=== PATIENT | female | born 1960 | race Caucasian/White ===

== ENCOUNTER 2023-07-04 13:42 | Emergency (ER) | payer OTHER, SELFPAY ==
[2023-07-04] VITALS (7 sets, daily range): BP systolic 145–166; BP diastolic 81–84; PULSE 79–100; RESP 18–20; TEMP 36.7; O2SAT 96–97; BMI 23.8
--- NOTE | 2023-07-04 14:11 | ED_ITS ---
HPI - General Adult General Time Seen by Provider: 14:12 Date Seen: 07/04/23 Chief complaint: Hypertension Stated complaint: high blood pressure, chest pain Time Seen by Provider: 07/04/23 13:59 Source: patient, family, RN notes reviewed and old records reviewed Mode of arrival: ambulatory Limitations: no limitations History of Present Illness HPI narrative: 62-year-old female the who presents today with high blood pressure and chest pain. Patient ran out of losartan about a week ago, restarted but did forget to take it yesterday. She has a appointment with medical management this week and decided to check her blood pressure this morning, initial was 170s/100s this morning, went up this afternoon. She also has had some twinges of chest pain. This is migratory, she has had about 3 or 4 episodes total today, last for a 2nd or 2. No associated nausea vomiting. No chest pain between episodes and no shortness of breath. Related Data Home Medications ?Medication ?Instructions ?Recorded ?Confirmed atorvastatin 20 mg tablet 20 mg PO DAILY 07/04/23 07/04/23 bupropion HCl 300 mg 24 hr tablet, 300 mg PO DAILY 07/04/23 07/04/23 extended release cyanocobalamin (vitamin B-12) 1,000 mcg IM 07/04/23 1,000 mcg/mL injection solution losartan 50 mg tablet 50 mg PO DAILY 07/04/23 07/04/23 metformin 500 mg tablet,extended 1,000 mg PO BID 07/04/23 07/04/23 release 24 hr semaglutide 2 mg/dose (8 mg/3 mL) mg subcut 07/04/23 subcutaneous pen injector (Ozempic) sertraline 100 mg tablet 150 mg PO 07/04/23 trazodone 100 mg tablet 100 mg PO QPM 07/04/23 07/04/23 Allergies Allergy/AdvReac Type Severity Reaction Status Date / Time morphine Allergy Unknown Verified 07/04/23 13:55 Penicillins Allergy Unknown Verified 07/04/23 13:55 Exam Narrative: Exam Narrative: General: Well-developed and well-nourished, no acute distress Head: Atraumatic and normocephalic Eyes: Pupils are equal reactive, extraocular motions intact, conjunctiva clear ENT: External nose and ears are normal, posterior pharynx without erythema or exudate Neck: No midline cervical tenderness, full spontaneous range of motion the neck, trachea midline, no adenopathy Heart: Regular rate and rhythm no murmurs or thrills Lungs: Clear to auscultation bilaterally without wheezes or crackles Abdomen: Soft, nontender, nondistended with active bowel sounds Musculoskeletal: No tenderness, deformity, or edema Neurologic: Awake, alert, and oriented x3, no gross focal neurologic deficits, cranial nerves intact as tested Psych: Mood and affect are appropriate Skin: No rashes Const: Vital Signs, click to edit/add: Vital Signs - 24 hr 07/04/23 13:48 Temperature 98.0 F Pulse Rate [Pulse Oximeter] 100 Respiratory Rate 20 Blood Pressure [Ri ght Upper Arm] 166/81 H Pulse Oximetry 97 Oxygen Delivery Me thod Room Air Course Course ED Course: Patient seen examined, presents today with elevated blood pressure chest pain. Blood pressure here is 166/81, patient appears very anxious, tremulous in, and a little bit disorganized in her history. Discussed labs, EKG although pain is not typical for angina. Reevaluation(s) Time of Reevaluation #1: 15:00 Reevaluation #1: Labs ordered and independently interpreted by me with negative troponin, normal basic metabolic panel. Patient is stable for discharge with outpatient follow- up as scheduled. No changes to antihypertensives for now. Vital Signs Vital signs: Initial Vital Signs Temperature 98.0 F 07/04/23 13:48 Temperature Source Temporal Artery Scan 07/04/23 13:48 Pulse Rate 100 07/04/23 13:48 Respiratory Rate 20 07/04/23 13:48 Blood Pressure 166/81 H 07/04/23 13:48 Blood Pressure Mean 109 H 07/04/23 13:48 Blood Pressure Position Sitting 07/04/23 13:48 Pulse Oximetry 97 07/04/23 13:48 Oxygen Delivery Method Room Air 07/04/23 13:48 Vital Signs Temperature 98.0 F 07/04/23 13:48 Pulse Rate 100 07/04/23 13:48 Respiratory Rate 20 07/04/23 13:48 Blood Pressure 166/81 H 07/04/23 13:48 Pulse Oximetry 97 07/04/23 13:48 Oxygen Delivery Method Room Air 07/04/23 13:48 Temperature 98.0 F 07/04/23 13:48 Pulse Rate 100 07/04/23 13:48 Respiratory Rate 20 07/04/23 13:48 Blood Pressure 166/81 H 07/04/23 13:48 Pulse Oximetry 97 07/04/23 13:48 Oxygen Delivery Method Room Air 07/04/23 13:48 Medical Decision Making Lab Data Labs: Lab Results 07/04/23 Range/Units 14:25 Sodium 139 (135-149) mmol/L Potassium 4.1 (3.6-5.1) mmol/L Chloride 109 (96-114) mmol/L Carbon Dioxide 26 (20-32) mmol/L Anion Gap 4 L (7-15) mEq/L BUN 10 (7-30) mg/dL Creatinine 0.6 (0.5-1.5) mg/dL Estimated Creat Clear 107.82 Estimated GFR 103 ml/min Glucose 149 H (60-115) mg/dL Calcium 9.0 (8.4-10.6) mg/dL Magnesium 1.6 (1.5-2.6) mg/dL POC Troponin I 0.00 L (0.01-0.04) ng/ml ECG Data Attestation: I personally reviewed and interpreted this ECG as follows: Prior ECG tracings: not available for review Interpretation: Performed at 2:23 p.m. demonstrates sinus rhythm rate 85, no acute ST elevations or depressions, normal intervals, normal axis, QTC 473, MO 130. No prior for comparison Discharge Plan Discharge Clinical Impression: Atypical chest pain, Hypertension Patient Disposition: Home, Self-Care Condition: Stable Instructions: Hypertension (ED), Noncardiac Chest Pain (ED) Activity Level: Activity as Tolerated Discharge Diet: Regular Prescriptions: No Action atorvastatin 20 mg tablet 20 mg PO DAILY sertraline 100 mg tablet 150 mg PO trazodone 100 mg tablet 100 mg PO QPM cyanocobalamin (vitamin B-12) 1,000 mcg/mL solution 1,000 mcg IM bupropion HCl 300 mg tablet extended release 24 hr 300 mg PO DAILY losartan 50 mg tablet 50 mg PO DAILY metformin 500 mg tablet extended release 24 hr 1,000 mg PO BID Ozempic 2 mg/dose (8 mg/3 mL) pen injector subcut Stand Alone Forms: MyHealth Info Instructions
[2023-07-04 14:46] LABS: Chloride* 109 mmol/L (96-114); Sodium* 139 mmol/L (135-149)
[2023-07-04 14:47] LABS: Potassium* 4.1 mmol/L (3.6-5.1)
[2023-07-04 14:49] LABS: Anion Gap 4 mEq/L (7-15); Carbon Dioxide* 26 mmol/L (20-32); Creatinine* 0.6 mg/dL (0.5-1.5); Est. Creatinine Clearance* 107.82; Estimated Glomerular Filt Rate 103 ml/min
[2023-07-04 14:50] LABS: Blood Urea Nitrogen* 10 mg/dL (7-30); Glucose* 149 mg/dL (60-115); Magnesium* 1.6 mg/dL (1.5-2.6)
== END 2023-07-04 15:13 | disposition home or self-care (01) ==
PROVIDERS: Emergency Provider Family Medicine
DX: R07.9 Chest pain, unspecified (principal); I10 Essential (primary) hypertension
CPT/HCPCS: 36415; 80048; 83735; 84484; 93005; 99284

== ENCOUNTER 2024-02-18 16:47 | Emergency (ER) | payer OTHER, SELFPAY ==
--- OUTSIDE RECORDS SUMMARY | 2024-02-18 16:49 | XMS_ITS | Referral Summary ---
Author Organization [facility] Address [address] [place] [id number] Care Team Providers Care Toy Assembly Supervisor Name Role Phone [facility], [facility] Primary Care Provider Allergies Active Allergy Reactions Criticality Noted Date Comments Morphine 07/18/2018 Penicillin G 04/08/2017 Medications LISINOPRIL PO Active ATORVASTATIN CALCIUM PO Active sertraline (ZOLOFT) 100 MG tablet Take 100 mg by mouth daily Active metFORMIN (GLUCOPHAGE) 500 MG tablet Take 1,000 mg by mouth 2 times daily (with meals) Active insulin glargine (LANTUS VIAL) 100 UNIT/ML vial Inject Subcutaneous At Bedtime Active liraglutide (VICTOZA) 18 MG/3ML solution Inject Subcutaneous daily Active oxyCODONE (ROXICODONE) 5 MG tablet Take 1-2 tablets (5-10 mg) by mouth every 6 hours as needed for pain 20 tablet 9 Active Active Problems No known active problems Social History Tobacco Use Types Packs/Day Years Used Date Smoking Tobacco: Never Alcohol Use Standard Drinks/Week Comments Yes 0 (1 standard drink = 0.6 oz pur e alcohol) rare Adolescent Education Answer Date Record ed Getting School Help Needed Not on file 10/31 Comments No Sex and Gender Information Value Date Recorded Sex Assigned at Not on file Legal Sex Female 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 Gender Identity Not on file Sexual Orientation Not on file Last Filed Vital Signs Vital Sign Reading Time Taken Comments Blood Pressure 139/86 06/19/2022 9:31 AM CDT Pulse 82 06/19/2022 9:31 AM CDT Temperature 36.1 C (97 F) 06/19/2022 9:31 AM CDT Respiratory Rate 16 06/06/2020 3:35 PM CDT Oxygen Saturation 96% 06/19/2022 9:31 AM CDT Inhaled Oxygen Concentration - - Weight 92.1 kg (203 lb 0.7 oz) 06/06/2020 12:18 PM CDT Height - - Body Mass Index - - Plan of Treatment Not on file Procedures Procedure Name Priority Date/Time Associated Diagnosis Comments BASIC METABOLIC PANEL STAT 06/06/2020 12:26 PM CDT from Last 3 Months or Most Recently Relevant to Health Maintenance Results * (ABNORMAL) Basic metabolic panel (06/06/2020 12:26 PM CDT) Sodium 130(L) 133 - 144 mmol/L 06/06/2020 1:00 PM [facility] Potassium 4.5 3.4 - 5.3 mmol/L 06/06/2020 1:00 PM [facility] Chloride 100 94 - 109 mmol/L 06/06/2020 1:00 PM [facility] Carbon Dioxide 12(L) 20 - 32 mmol/L 06/06/2020 1:09 PM [facility] Anion Gap 18(H) 3 - 14 mmol/L 06/06/2020 1:09 PM [facility] Glucose 389(H) 70 - 99 mg/dL 06/06/2020 1:09 PM [facility] Urea Nitrogen 21 7 - 30 mg/dL 06/06/2020 1:09 PM [facility] Creatinine 0.69 0.52 - 1.04 mg/dL 06/06/2020 1:09 PM [facility] GFR Estimate >90 >60 mL/min/{1. 73_m2} 06/06/2020 1:09 PM [facility] Comment: Non GFR Calc Starting 01/24/2018, serum creatinine based estimated GFR (eGFR) will be calculated using the Chronic Kidney Disease Epidemiology Collaboration (CKD-EPI) equation. GFR Estimate If Black >90 >60 mL/min/{1. 73_m2} 06/06/2020 1:09 PM [facility] Comment: GFR Calc Starting 01/24/2018, serum creatinine based estimated GFR (eGFR) will be calculated using the Chronic Kidney Disease Epidemiology Collaboration (CKD-EPI) equation. Calcium 9.3 8.5 - 10.1 mg/dL 06/06/2020 1:09 PM CDT [facility] Blood 06/06/2020 12:2 6 PM CDT 06/06/2020 12:47 PM CDT us Rasheeda Najera MD LAB - BLOOD ORDERABLES Fi nal Result [facility] [address] [place], [place] [address] [phone] from Last 3 Months or Most Recently Relevant to Health Maintenance Insurance [facility] Care Teams Toy Assembly Supervisor Relationship Specialty Start Date End Date Clinic, [facility] [address] [place] [address] PCP - General 04/08/17
--- OUTSIDE RECORDS SUMMARY | 2024-02-18 16:49 | XMS_ITS | Clinical Summary ---
Author Organization [facility] Address [place], [place] [address] Care Team Providers Care Needle Molder Name Role Phone [facility] Primary Care Provider [phone] Allergies Active Allergy Reactions Criticality Noted Date Comments Morphine Itching 07/18/2018 Penicillins Hives,Shortness Of Breath 9 Medications BLOOD GLUCOSE TEST STRIPSIndication s:Type II or unspecified type diabetes mellitus without mention of complication, not stated as uncontrolled bid for dm 100 3 07/16/19 09 Active LANCETSIndicatio ns:Type II or unspecified type diabetes mellitus without mention of complication, not stated as uncontrolled bid for dm 100 3 07/16/19 09 Active Insulin Platinum, Disposable, (OREN PEN NEEDLE) 32 x 5/32 Indications:Typ e II or unspecified type diabetes mellitus without mention of complication, not stated as uncontrolled As directed. For administering insulin at home. 1 box 0 11/08/19 12 Active insulin glargine (LANTUS SOLOSTAR) 100 unit/mL (3 mL) InPn penIndications:T ype II or unspecified type diabetes mellitus without mention of complication, not stated as uncontrolled Inject 26 Units subcutaneous before bedtime. 1 box 2 10/19/19 13 Active lisinopril (PRINIVIL; ZESTRIL) 10 mg tabletIndication s:Proteinuria Take 1 tablet by mouth once daily. 90 tablet 1 12/05/19 13 Active insulin needles, disposable, (SURE-FINE PEN NEEDLES) 31 X 06/22 Indications:Typ e II or unspecified type diabetes mellitus without mention of complication, not stated as uncontrolled Diagnosis diabetes mellitus, twice daily 60 Each 2 12/05/19 13 Active metFORMIN (GLUCOPHAGE) 1,000 mg tabletIndication s:Type II or unspecified type diabetes mellitus without mention of complication, not stated as uncontrolled Take 1 tablet by mouth 2 times daily with meals. 180 tablet 0 01/12/20 13 Active traZODone (DESYREL) 100 mg tabletIndication s:Vitamin D deficiency Half to 1 tablet oral at bedtime as needed sleep 90 tablet 1 02/20/19 14 Active ergocalciferol (VITAMIN D) 50,000 unit capsuleIndicatio ns:Vitamin D deficiency Take 1 capsule by mouth every Tuesday and . Twice a week , Tuesday and 24 capsule 1 02/22/19 14 Active atorvastatin (LIPITOR) 20 mg tabletIndication s:Hyperlipemia Take 1 tablet by mouth once daily. 90 tablet 3 07/17/19 14 Active semaglutide (Ozempic) 1 mg/dose (4 mg/3 mL) Inject 1 mg subcutaneous once weekly. 08/04/19 22 Active insulin lispro, U-100, (HUMALOG KWIKPEN; ADMELOG SOLOSTAR) 100 unit/mL inpn pen Inject 8 units with breakfast Plus ss 2 per 50 mg/dl >150 as needed. Up to 20 units daily. 01/19/20 22 Active cyanocobalamin (VITAMIN B12) 1,000 mcg/mL injection inject 1ml (1,000 mcg) intramuscularly every 30 days 09/09/19 22 Active buPROPion (WELLBUTRIN XL) 300 mg Extended-Release tablet Take 300 mg by mouth. 10/21/19 22 Active Active Problems Problem Noted Date Diagnosed Date Proteinuria 10/18/2012 Vitamin D deficiency 08/02/2011 Hyperlipemia 08/02/2011 TIA (transient ischemic attack) 07/20/2010 Advance care planning 07/20/2010 Premenopausal menorrhagia 05/29/2009 Sterilization 05/29/2009 Abdominal hernia 03/17/2009 Adjustment disorder with depressed mood 07/16/19 09 SPRAIN, KNEE 05/30/2003 DIABETES TYPE II WITHOUT COMPLICATIONS OR UNSPEC IFIED 07/18/2002 Overview (05/10/2011): Next eye exam 05/20 Gastric bypass status for obesity Immunizations Name Administration Dates Next Due Influenza A (H1N1), Inactiva sukhdev (Age >=3 Years) 01/29/2009 Influenza, IIV3 (Age 6-35 mos) 10/18/2012 Influenza, IIV3 (Age >=3 years) 11/08/19 12,12/10/2010,10/17/2009,2008 Influenza, IIV4 01/05/2022, 0,11/14/2018,2017 Pneumococcal Poly,23-Valent (Pneumovax) 04/13/2007 Td (Age >=7 Years) 01/15/2015,06/06/1997 Td, Preservative Free (age > = 7 Years) 01/15/2015 Tdap 12/10/2010,07/17/2007 Zoster (Shingrix-RZV, recombinant) 07/21/2018, Family History Medical History Relation Name Comments Cancer-breast Mother Genetic Other mom - brCA, CAD , HTN, DM2, depression~maternal aunt, MGF CD Relation Name Status Comments Father Alive Mother Diagnosed in he r 50's Other Social History Tobacco Use Types Packs/Day Years Used Date Smoking Tobacco: Never Smokeless Tobacco: Never Alcohol Use Standard Drinks/Week Comments Yes 0 (1 standard drink = 0.6 oz pur e alcohol) couple times a month Social Connections Answer Date Recorded Frequency of Communication with Friends and Fami ly 0 02/09/2022 Financial Resource Strain Answer Date R ecorded Difficulty of Paying Living Expenses 3 02/09/2022 Difficulty of Paying Living Expenses Not on file 02/09/2022 Food Insecurity Answer Date Recorded Worried About Running Out of Food in the Last Ye ar 1 02/09/2022 Transportation Needs Answer Date Record ed Lack of Transportation (Medical) 1 02/09/2022 Housing Stability Answer Date Recorded Unable to Pay for Housing in the Last Year 1 02/09/2022 Comments No Sex and Gender Information Value Date Recorded Sex Assigned at Not on file Legal Sex Female 5:31 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 Gender Identity Not on file Sexual Orientation Not on file Obstetrics History Last Filed Vital Signs Vital Sign Reading Time Taken Comments Blood Pressure 122/70 02/09/2022 3:44 PM GLOVE CLEANER Pulse 80 02/09/2022 3:44 PM GLOVE CLEANER Temperature 36.3 C (97.4 F) 03/31/2019 8:30 AM GLOVE CLEANER Respiratory Rate 16 03/31/2019 8:30 AM GLOVE CLEANER Oxygen Saturation 96% 02/09/2022 3:44 PM GLOVE CLEANER Inhaled Oxygen Concentration - - Weight 91.4 kg (201 lb 6.4 oz) 02/09/2022 3:44 P M GLOVE CLEANER Height 177.8 cm (5' 10) 02/09/2022 3:44 PM GLOVE CLEANER Body Mass Index 28.9 02/09/2022 3:44 PM GLOVE CLEANER Plan of Treatment Health Maintenance Due Date Last Done Comments Depression screening for age 12+ 1974 Hepatitis C screening for ag e 18-79 1980 Colonoscopy through age 75 10/09/2007 Pneumococcal series for age 50+ (2 of 2 - PCV) 04/12/2008 04/13/2007 Mammogram for age 45-75 08/07/2013 08/08/19 13, 08/06/2011, 12/08/2009, Additional history exists Pap test for age 21-65 07/29/2014 07/30/2011, 2008 Lipids for age 45-75 03/06/2018 03/06/2013, 06/23/2012, 03/13/2012, Additional history exists BMI (ht and wt on same day) for age 18+ 02/09/2023 02/09/2022 COVID-19 vaccine series ( season) 2023 01/05/2022, 02/02/2021, 04/18/2020, Additional history exists Influenza for age 50-64 10/09/2023 01/06/20 22, 12/12/2019, 11/14/2018, Additional history exists Tetanus booster 01/15/2025 01/15/2015, 1210/2014, 12/10/2010, Additional history exists RSV vaccine for adults or (1 - 1-dose 75+ series) 2037 Tdap Completed 12/10/2010, 07/17/2007 HIV for age 15-65 Completed 12/04/2012 Zoster (shingles) series for age 50+ Completed 07/21/2018, 04/20/2017 Medical Devices Implanted Type Area Consumer Insights Intern Device Identifier Shelf Expiration Date Model / Serial / Lot Essure [id number] Implanted:Qty: 1 on 05/29/2009 at [facility] Right: Fallopian Tube [employer] [id number] / / [id number] System Control Permanentpressure - [id number] Implanted:Qty: 1 on 05/29/2009 at [facility] Left: Fallopian Tube [employer] 12/09/2011 [id number] / / [id number] Procedures Procedure Name Priority Date/Time Associated Diagnosis Comments LIPID PANEL W REFLEX MEASURED LDL Routine 03/06/2013 9:14 AM GLOVE CLEANER DIABETES TYPE II WITHOUT COMPLICATIONS OR UNSPECIFIED ANTI HIV 1/2 Routine 12/04/2012 10:38 AM CDT Screening for STD (sexually transmitted disease) XR MAMMO BILAT SCREEN FFDM (IA) Routine 08/07/2012 11:37 AM CDT Other screening mammogram RISK REDUCTION COUNSELOR THIN PREP PAP SCREEN IMAGED Routine 07/30/2011 9:22 AM CDT Screening for malignant neoplasm of the cervix from Last 3 Months or Most Recently Relevant to Health Maintenance Results * LIPID PANEL W REFLEX MEASURED LDL (03/06/2013 9:14 AM GLOVE CLEANER) CHOLESTEROL,TOTA L 137 100 - 199 mg/dL [facility] TRIGLYCERIDES 140 <150 mg/dL [facility] HDL CHOLESTEROL 50 >40 mg/dL [facility] CHOL/HDL RATIO 2.74 <4.50 [facility] NON-HDL CHOLESTEROL 87 Undefined mg/dL [facility] LDL CHOLESTEROL 59 <131 mg/dL [facility] PATIENT STATUS Non-Fast ing [facility] Blood specimen (specimen) BLOOD SPECIMEN / Unknown 03/06/2013 9:14 AM GLOVE CLEANER 03/06/2013 9:04 AM GLOVE CLEANER us Nadia Trujillo MD CHEMISTRY Final Result [facility] [place]IP [id number] [place] [address] * ANTI HIV 1/2 (12/04/2012 10:38 AM CDT) ANTI HIV 1/2 Non-reacti ve [facility] Blood specimen (specimen) BLOOD SPECIMEN / Unknown 12/04/2012 10:38 AM CDT 12/04/2012 10:30 AM CDT us Nadia Trujillo MD SEND OUTS Final Result [facility] INTERNAL ZIP [id number] [address] [place] [address] * XR MAMMO BILAT SCREEN FFDM (08/07/2012 11:37 AM CDT) Anatomical Region Laterality Modality BREASTS, Breast Left, Breast Right Bilateral Mammography Impressions 08/08/2012 8:50 AM CDT There is no radiographic evidence for malignancy. Recommend annual mammograms. A lay language report of this examination will be provided to the patient. MAMMOGRAM ASSESSMENT: ACR 1 Negative Narrative 08/08/2012 8:50 AM CDT XR MAMMO BILAT SCREEN FFDM [G0202.0] CLINICAL HISTORY: This is an asymptomatic 51 y.o. patient. INDICATION FOR EXAM: Mammogram Screening. TECHNIQUE: CC & MLO views were obtained. This digital study was evaluated with the assistance of Computer-Aided Detection. COMPARISON FILM: Yes 08/06/11 [facility] 12/08/09 [facility] FINDINGS: Mammographically, the breast tissue has scattered fibroglandular densities (approximately 25% - 50% glandular). There are no dominant masses, suspicious micro calcifications or areas of architectural distortion. Procedure Note Yolanda Oscar MD - 08/08/2012 XR MAMMO BILAT SCREEN FFDM [G0202.0] CLINICAL HISTORY: This is an asymptomatic 51 y.o. patient. INDICATION FOR EXAM: Mammogram Screening. TECHNIQUE: CC & MLO views were obtained. This digital study was evaluatedwith the assistance of Computer-Aided Detection. COMPARISON FILM: Yes 08/06/11 [facility] 12/08/09 [facility] FINDINGS: Mammographically, the breast tissue has scatteredfibroglandular densities (approximately 25% - 50% glandular). There areno dominant masses, suspicious micro calcifications or areas ofarchitectural distortion. IMPRESSION: There is no radiographic evidence for malignancy. Recommendannual mammograms. A lay language report of this examination will be provided to the patient. MAMMOGRAM ASSESSMENT: ACR 1 Negative us Nadia Trujillo MD MAMMO Final Result * RISK REDUCTION COUNSELOR THIN PREP PAP SCREEN IMAGED (07/30/2011 9:22 AM CDT) CYTOLOGY CYTOPATHOLOGY REPORT [facility] Status: Final Status [id number] CLINICAL INFORMATION Last Date of LMP :Ablation Last Pap Date :07/15/2008 Last Pap Result :NIL ABN [place]/Bx Past 5 YRS :None Hormone Usage :None Menstrual Status :Ablation [place]/Bx done today :No Additional Information :None given HPV Request :HPV if ASCUS SPECIMEN SOURCE :Cervical/vaginal ThinPrep Vial, screening SPECIMEN ADEQUACY :Satisfactory for evaluation No endocervical component seen. INTERPRETATION/RES ULT Negative for intraepithelial lesion or malignancy (NIL) Cytology 1st Screener :yovany Signed by :yovany This specimen was screened by the FDA approved ThinPrep Imaging System and manually reviewed. NOTE: The Pap test is a screening technique, not a diagnostic procedure. It is used primarily to screen for squamous cancers and precursor lesions. Published studies have shown that it is subject to both false negative and false positive results. The pap test should not be used as the sole means to diagnose or exclude pre-malignant and malignant lesions. COLLECTED:07/30/11 ACCESSIONED: 07/30/11 SIGNED: 08/05/11 [facility] PAP [place] CODE NIL [facility] Tissue specimen (specimen) (Cervical/Vagina l) 07/30/2011 9:22 AM CDT 07/30/2011 9:21 AM CDT us Nadia Trujillo MD PATHOLOGY/CYTOLOGY Final Resul t [facility] INTERNAL ZIP [id number] [place] [id number] from Last 3 Months or Most Recently Relevant to Health Maintenance Insurance [facility] Advance Directives * Full Code (Latest Code Status on File) Date Activated Date Inactivated Comments 05/29/2009 11:05 AM 05/29/2009 6:15 PM Care Teams Needle Molder Relationship Specialty [place] [address] [place] [address] PCP - General Physician Spiral Spring Winder 02/09/22
--- OUTSIDE RECORDS SUMMARY | 2024-02-18 16:49 | XMS_ITS | Clinical Summary ---
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 Gender Identity Not on file Sexual Orientation [...] Mass Index - - Plan of Treatment Health Maintenance Due Date Last Done Comments ADVANCE CARE PLANNING 1962 ANNUAL REVIEW OF HM ORDERS 1962 CT COLONOGRAPHY 1962 FIT 1962 FLEX SIG 1962 LIPID 1962 sDNA (Cologuard) 1962 YEARLY PREVENTIVE VISIT 1965 COLONOSCOPY 1972 COLORECTAL CANCER SCREENING 1972 HIV SCREENING 1977 HEPATITIS C SCREENING 1980 PAP 10/09/1983 Pneumococcal Vaccine: 50+ Years (2 of 2 - PCV) 2012 04/13/2007 PHQ-2 (once per calendar year) 2023 GLUCOSE 06/07/2023 06/06/2020, 0303/2017, 04/08/2017 MAMMO SCREENING 09/26/2023 09/25/2021, 05/09, 06/02/2020, Additional history exists COVID-19 Vaccine ( season) 2023 01/05/2022, 02/02/2021, 04/18/2020, Additional history exists INFLUENZA VACCINE (#1) 2023 , 02/02/2021, 12/12/2019, Additional history exists DTAP/TDAP/TD IMMUNIZATION (4 - Td or Tdap) 01/15/2025 01/15/2015, 12/10/2010, 07/17/2007, Additional history exists RSV VACCINE (1 - 1-dose 75+ series) 2037 ZOSTER IMMUNIZATION Completed 07/21/2018, 8 HPV IMMUNIZATION Aged Out No longer e ligible based on patient's age to complete this topic MENINGITIS IMMUNIZATION Aged Out No l onger eligible based on patient's age to complete this topic RSV MONOCLONAL ANTIBODY Aged Out No l onger eligible based on patient's age to complete this topic Procedures Procedure Name Priority Date/Time Associated Diagnosis Comments BASIC METABOLIC PANEL STAT 06/06/2020 12:26 PM CDT from Last 3 Months or Most Recently Relevant to Health Maintenance Results * (ABNORMAL) Basic metabolic panel (06/06/2020 12:26 PM CDT) Sodium 130(L) 133 - 144 mmol/L 06/06/2020 1:00 PM [facility] Potassium 4.5 3.4 - 5.3 mmol/L 06/06/2020 1:00 PM [facility] Chloride 100 94 - 109 mmol/L 06/06/2020 1:00 PM [facility] Carbon Dioxide 12(L) 20 - 32 mmol/L 06/06/2020 1:09 PM [facility] Anion Gap 18(H) 3 - 14 mmol/L 06/06/2020 1:09 PM [facility] Glucose 389(H) 70 - 99 mg/dL 06/06/2020 1:09 PM [facility] Urea Nitrogen 21 7 - 30 mg/dL 06/06/2020 1:09 PM [facility] Creatinine 0.69 0.52 - 1.04 mg/dL 06/06/2020 1:09 PM [facility] GFR Estimate >90 >60 mL/min/{1. 73_m2} 06/06/2020 1:09 PM [facility] Comment: Non GFR Calc Starting 01/24/2018, serum creatinine based estimated GFR (eGFR) will be calculated using the Chronic Kidney Disease Epidemiology Collaboration (CKD-EPI) equation. GFR Estimate If Black >90 >60 mL/min/{1. 73_m2} 06/06/2020 1:09 PM [facility] Comment: GFR Calc Starting 01/24/2018, serum creatinine based estimated GFR (eGFR) will be calculated using the Chronic Kidney Disease Epidemiology Collaboration (CKD-EPI) equation. 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
--- OUTSIDE RECORDS SUMMARY | 2024-02-18 16:50 | XMS_ITS | Encounter Summary ---
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 Social History Tobacco Use Types Packs/Day Years Used Date Smoking Tobacco: Never Smokeless Tobacco: Never Alcohol Use Standard Drinks/Week Comments No 0 (1 standard drink = 0.6 oz pur e alcohol) Sex and Gender Information Value Date Recorded Sex Assigned at Not on file Gender Identity Not on file Sexual Orientation Not on file documented as of this encounter Plan of Treatment Upcoming Encounters Date Type Department Care Team (Late Contact Info) Description 02/23/2024 1:00 PM RESEARCH QUALITY ASSURANCE SPECIALIST Telemedicine [facility] [address] [place] [phone] Lupe Graf PA-C [address] [place] [address] 02/24/2024 2:00 PM RESEARCH QUALITY ASSURANCE SPECIALIST Telemedicine [facility] [address] [place], [place] [phone] Angela Tinajero PharmD [address] [place] [address] documented as of this encounter Visit Diagnoses Not on filedocumented in this encounter Care Teams Care Clinician Relationship Specialty Start Date End Date Lupe Graf PA-C [address] [place] [address] PCP - General 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
--- OUTSIDE RECORDS SUMMARY | 2024-02-18 16:50 | XMS_ITS | Encounter Summary ---
Author Organization [facility] Address [address], [place] [address] Care Team Providers Care [employer] Sales Consultant Name Role Phone Lupe Graf PA-C Primary Care Provider [phone] Encounter Details Date Type Department Care Team (Late st Contact Info) Description 01/03/2024 Procedure Visit [facility] Neuropsychology [address] [address] Krystin Lui PsyD, JAMAAL [address] [place], [place] [id number] Social History Tobacco Use Types Packs/Day Years Used Date Smoking Tobacco: Never Smokeless Tobacco: Never Alcohol Use Standard Drinks/Week Comments Yes 0 (1 standard drink = 0.6 oz pur e alcohol) occasional AUDIT-C Answer Date Recorded Q1: How often do you have a drink containing alc ohol? 2-4 times a month 01/25/2020 Average Number of Drinks Not on file 020 Frequency of Binge Drinking Not on file 01/07 PHQ-2 Answer Date Recorded PHQ-2 Score 2 12/16/2022 Sex and Gender Information Value Date Recorded Sex Assigned at Not on file Gender Identity Not on file Sexual Orientation Not on file documented as of this encounter Procedure Notes * Krystin Lui PsyD, LP - 01/03/2024 8:59 AM CSTAssociated Order(s): NEUROPSYCHOLOGICAL EXAM Procedure(s): NEUROPSYCHOLOGICAL EXAM NEUROPSYCHOLOGICAL EVALUATION DATE(S) OF SERVICE: Testin01/03/2024 NEUROPSYCHOLOGICAL PROFILE: Information presented in the table below is a gross summary of the patient's cognitive performance based upon objective test results, normative data, functional reports, clinical observation, and professional judgment. This table should not be used in isolation. Variability and other important patterns of performance may not be fully reflected here. Refer to the sections below entitled DiagnosticSummary and Detailed Test Results for appropriate context and greater specificity. Within Normal Limits Subtle Mild Moderate Severe Processing Speed X Language X Visuospatial X Learning X Memory: Retrieval X Memory: Recog X Attention X Executive X Global Rating Performance Validity X Mood X DIAGNOSTIC IMPRESSIONS: Essentially normal neuropsychological profile DIAGNOSTIC SUMMARY: Results of this neuropsychological evaluation are essentially normal. Ms. Pace scored within the normal range across tasks of auditory attention/concentration, processing speed, executive functioning, visuoperceptual reasoning, language, and memory. With regard to memory more specifically, scores on verbal memory tasks were average to above average (word list, short stories). Immediate recall of a set of designs was below expectation on the first two learning trials, but above average on the third learning trial. Delayed recall of the set of designs was high average and recognition of them was intact. Mood assessment was suggestive of moderate symptoms of depression and mild symptoms of anxiety. Ms. Pace's test results suggest that the increased difficulty she's noticing with memory and word-finding in her day-to-day affairs most likely reflect normal cognitive efficiencies that people experience. Symptoms of depression and anxiety can also contribute to cognitive inefficiencies. Concerns about memory can also lead to some hypervigilant monitoring of one's cognitive functioning and normal cognitive blips might be misinterpreted as pathological. Ms. Pace could also potentially be noticing some subtle age-related cognitive changes. At this time, Ms. Pace's essentially normal pattern ofperformance across cognitive domains assessed provides no compelling evidence of relative weakness or object impairment which would raise concern about early signs of a neurodegenerative condition. RECOMMENDATIONS: 1. Neurology and Primary Care. Ms. Pace is scheduled for a follow-up appointment with Hailey Glover, ANPR, PIT CLERK, on 01/26/2024 during which time neuropsychological test results will be reviewed and incorporated into diagnostic impressions and recommendations. Results will also be shared with Ms. Pace's primary care provider, Lupe Graf PA-C. 2. Behavioral Health. Ms. Pace had elevated scores on brief mood questionnaires assessing symptomsof depression and anxiety. She was previously referred to Psychiatry to discuss potential changes to her anti-depressant medications, but it does not appear an appointment was scheduled. She can [phone] to schedule an appointment. Ms. Pace indicated she hasn't found therapy particularly helpful in the past, but she's encouraged to keep an open mind and consider finding a therapist with whom she connects. 3. Compensatory Strategies. Ms. Pace should continue to routinely use organizational tools and memory aids, such as to-do lists/written reminders, phone alarms, a calendar, audible reminders (e.g., phone alarms, Reymundo reminders). Having set locations for important items is recommended. When setting an item down, take a moment to be mindful about where you're setting the item - mentally state where you are putting it and what else is in that area. The Smart But Scattered Guide to Success: How to Use Your Brain's Executive Skills to Keep Up, Stay Calm, and Get Organized at Work and at Home by Dr. Swetha Olivares and Dr. Alcon Dueñas has useful advice for people who have difficulties with attention, organization, and memory in their day-to-day affairs. 4. Promoting Overall Health. Ms. Pace is encouraged to remain physically, socially, and cognitivelyactive to promote her overall health and well-being. 5. Neuropsychological Re-Evaluation. Current results can serve as a point of comparison. If there are concerns about a progressive decline in cognitive functioning, a neuropsychological re-evaluationcan be arranged. REFERRING CLINICIAN: Hailey Glover, WEATHERIZATION DIRECTOR, PIT CLERK [address] / [place] [address] REASON FOR CONSULTATION: Neuropsychological evaluation to assess the patient's current cognitive status, rule out an organicbasis for impairment, assist with diagnostic clarification, and offer treatment recommendations. CLINICAL HISTORY: Ms. Shawna Pace is a 63-year-old, right-handed, white female who presented for a neuropsychological evaluation. Per review of records, in 2017 Ms. Pace was seen by Dr. Garcia in Neurology. Per his note, Ms. Pace reported 3 episodes of experiencing cognitive difficulty followed by a headache whileat work during high stress situations. She apparently was supposed to respond promptly to a conversation and seemed to lose her train of thought. She apparently could hear what people were saying buttheir voices seemed to be coming from a distance and muffled. She indicated the left her face felt numb and then had a headache, nausea, unsteadiness, and visual changes characterized by ???a tricklelike a wave of objects moving.?? The headache would last a day or two. Her neurological examination was notable for difficulty with tandem walking. Dr. Garcia's impression was that these episodes were migraine headaches. In May and June 2023 Ms. Pace reported concerns about her memory and hand tremor to her pharmacist, Dr. Vergara. Dr. Vergara recommended Ms. Pace follow-up with her primary care provider, Lupe Graf PA-C. Lupe Graf PA-C, referred Ms. Pace to Neurology and to Occupational Therapy. A referral to Psychiatry was also placed for possible anti-depressant medication changes, though it does not appear an appointment was scheduled. On 07/11/2023 Ms. Pace was seen by YANG Peralta/Emeka. Per her note, Ms. Pace indicated that she had been noticing more forgetfulness, such as forgetting plans she set up with friends. Word-finding difficulties were also reported. Ms. Pace indicated that she has dyslexia which has been associated with some lifelong challenges, such as with difficulty with directions. Ms. Pace obtained a score of27/30 on the MoCA. Memory compensatory strategies were reviewed. On 09/08/2023 Ms. Pace was seen in Neurology by Hailey Glover APRN, PIT CLERK. Per her note, Ms. Pace reported having a hand tremor for about 5 years which had progressively worsened, making it hard to dosome activities she used to enjoy, such as drawing and painting. Changes with memory were reported to have emerged over the past two years, such as forgetting recent events, asking a question repeatedly, and difficulties recalling names. Difficulties expressing thoughts and maintaining attention/focus were also endorsed. Visual misperceptions and balance difficulties were reported. It was noted Ms. Pace's mother had Lewy body dementia. Ms. Pace's neurological examination was notable for an ataxic tandem walk and a resting tremor in the head and bilateral upper extremities. Hailey Glover APRN, PIT CLERK, recommended lab work, an EMG to check for neuropathy, neuroimaging of the brain and cervical spine, and a neuropsychological evaluation. During the current evaluation on 01/03/2024, Ms. Pace reported concerns about increased difficulty with memory. She said she'll think of something she needs to do, such as call someone, but then forget to complete the task. She said she forgets things that were recently discussed, such as making plans with a friend. Ms. Pace thinks she is repeating questions to others. Ms. Pace indicated she is misplacing items more frequently. She said at work there are set procedures and sometimes she will bein the middle of a step and feel lost, needing to retrace what she had already completed. Ms. Pace said there are some events from when her children were younger that she thinks she should remember but does not. Ms. Pace reported word-finding difficulties. She said sometimes she thinks she misunderstood something or will respond to others with a comment that is not quite right. She reported losing her train of thought and feeling like her mind goes blank sometimes. Ms. Pace reported she was diagnosed with dyslexia as a child. She said she had a lot of difficulty learning to read but after learning to read became an avid reader. She indicated she will sometimes miss things when reading and that seems to be happening more. Ms. Pace said she has always had difficulties with spatial navigation and knowing left from right. She also reported math has always been ? ??impossible?? for her. Ms. Pace said her hand tremor can vary, but it interferes with her handwriting. She denied her handwriting has become smaller. She reported some balance difficulties and occasional falls. Ms. Pace denied dream enactment behavior. She had been diagnosed with obstructive sleep apnea (PIPO)in the past. She indicated she lost weight and does not believe she has PIPO anymore. With regard to visual misperceptions, Ms. Pace said when looking at lines or a dot on a surface thelines/dot seem to move downward. She believes she has experienced this most of her life. She deniedexperiencing well-formed visual hallucinations. Ms. Pace is independent in managing instrumental activities of daily living. She reported she has set up a lot of reminders to help her keep track of what she needs to do when. DIAGNOSTIC STUDIES: Results from the patient's brain MRI dated 09/20/2023 showed mild chronic microvascular ischemic change, mild generalized cerebral atrophy, and mild cerebellar atrophy. Per NeuroQuant, the hippocampaloccupancy score was at the 91st normative percentile. Results from the patient's cervical spine MRI dated 09/20/2023 showed mild degenerative changes and stenosis. There was no high-grade cervical spinal canal narrowing. Results from the patient's EMG dated 10/11/2023 were normal. MEDICAL HISTORY: In addition to what is noted above, Ms. Pace has diabetes. She was hospitalized in June 2020 with diabetic ketoacidosis within the context of increased depression and non-adherence with her insulin and glucose monitoring. Ms. Pace has hypertension, hyperlipidemia, a history of anomalous atrioventricular excitation (s/p ablation), and a history of gastric bypass surgery. She has hearing loss and said wearing an Airbud/earbud helps. She has hearing aids but doesn't use them. Ms. Pace said she probably had a few concussions when she was young. She denied a history of seizures. FAMILY MEDICAL HISTORY: Ms. Pace's mother had Lewy body dementia. She said her mother's symptoms probably started in her late 60s and she at the age of 78. There is no other known family history of dementia. CURRENT MEDICATIONS: Ms. Pace has a current medication list which includes the following prescription(s): atorvastatin, bupropion, freestyle fredy 3 sensor, cyanocobalamin, glucosamine-chondroitin, hydrochlorothiazide, irbesartan, metformin xr, metronidazole, womens 50+ multi vitamin/min, polyethylene glycol, ozempic (2 mg/dose), sertraline, trazodone, and vitamin d (ergocalciferol). SOCIAL HISTORY: Ms. Pace was born in [place] and lived there until she was around the age of 4 or 5. She then moved to the [facility] to live with her mother. As noted above, Ms. Pace reported difficulties learning to read and indicated she was diagnosed with dyslexia. She said school was very challenging for her. Ms. Pace graduated high school. She said her mother told her she was not smart enough to go to [employer]. Ms. Pace works at [employer] in the [employer] department. She's worked at [employer] [facility] 10 to 11 years. She previously worked at [employer]. 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 Ms. Pace and her have been 34 years. They have 2 young adult sons. In terms of hobbies/interests, Ms. Pace enj oys spending time with her horse, though indicated she no longer rides her. Ms. Pace listens to audio books and likes doing art work. She has some friends she sees every 2 to 3 weeks and sees a groupof very close friends who live further away every month or two. PSYCHIATRIC HISTORY: Ms. Pace has a history of depression and anxiety. She indicated her mother was narcissistic and cruel. Ms. Mitchell said she has always been down on herself. She has had passive suicidal ideation. She's been in counseling in the past, but said she didn't find it very helpful. Ms. Hoover's anti-depressants are prescribed by her primary care provider. SUBSTANCE USE HISTORY: With regard to alcohol use, Ms. Pace said she used to drink one or two Bloody Yuki's in the eveningseveral days of the week but after being told her alcohol use could cause memory difficulties she cut back. She said now she'll occasionally have a drink if out with a friend. Ms. Pace sometimes eatsa gummy to help her sleep; she wasn't sure if the gummies contain THC or CBD. She denied other recreational drug use. MENTAL-STATUS EXAMINATION AND BEHAVIORAL OBSERVATIONS: Ms. Pace arrived early for the appointment, unaccompanied. She was appropriately dressed and groomed. Upon casual observation, ambulation was unremarkable. A bilateral action and positional hand tremor was noticed. Both hearing and vision appeared adequate for the purposes of testing. During brief mental status testing, Ms. Pace was fully oriented. She could state the name of the current president and several immediate predecessors. She correctly answered what happened to Hiren Yip and 10/18/2000, and was able to cite a couple of current event topics. Ms. Pace was alert throughout the evaluation. Receptive language functions were intact to conversation. She appeared to understand test instructions without difficulty. Expressive speech was normal in volume, rate, and prosody. Thought processes were generally linear and goal-directed. Response latencies were within the normal range. Ms. Pace demonstrated a full range of affect. She noted she wassomewhat anxious during the testing session and tended to bounce her leg. Ms. Pace was friendly, engaged, and cooperative throughout the evaluation. Ms. Pace was quite self-critical of her perceived performance. She appeared to persist on challenging items. Scores on freestanding and embedded measures of performance validity were adequate. The following results are believed to be an accurate reflection of her current level of cognitive functioning. NEUROPSYCHOLOGICAL MEASURES ADMINISTERED: In addition to chart review and clinical interview, the following neuropsychological measures were administered: Animal Naming Ramos Anxiety Inventory Ramos Depression Inventory - Second Edition [place] Naming Test Brief Visuospatial Memory Test - Revised Clock Drawing Test Controlled Oral Word Association Test Rona-Goel Executive Functioning System, Selected subtests Miller Verbal Learning Test- Revised Dimitris-O Complex Figure Copy [place] Making Test, Parts A and B Too Adult Intelligence Scale - Fourth Edition, Selected subtests Too Memory Scale - Fourth Edition, Selected subtests Wide Range Achievement Test -4, Selected subtests [place] Card Sorting Test - 64 Card Version Various freestanding and embedded measures of performance validity Thank you, Hailey Glover APRN, PIT CLERK, for involving me in the care of this patient. Please feel free to contact me if I can be of further assistance. Neurobehavioral status exam: 35 minutes. Test administration and scoring by accounts payable technician: 177 minutes. Test evaluation services, including clinical integration, data interpretation, clinical decision making, treatment planning, and documentation: 165 minutes. Please note: This report was created using speech-recognition software and may contain unintended word-substitutions. Krystin Lui PsyD, ABPP, LP Board Certified in Clinical [place] [address] DETAILED TEST RESULTS: Word reading, often used to estimate baseline functioning/educational attainment, was average. Auditory attention/concentration was average to above average. Processing speed was average on a digit-symbol coding task and on a visual scanning and numeric sequencing task. Rapid color naming was average and rapid word reading was above average. With regard to executive functioning, cognitive flexibility/set-shifting was average on an alpha-numeric sequencing task. Performance on a task of responseinhibition was average. On the subsequent section which added in a set-shifting component performance was above average. Novel problem-solving as assessed by a card-sorting task was intact. Copy of a complex figure was within the normal range. Lines were tremulous. Clock drawing was notable for incorrect placement of the minute hand. Visuoperceptual reasoning on a block design task was in the average range. Confrontation naming was in the slightly lower end of the average range; phonemic cues provided benefit. Both phonemic and semantic fluency were above average. Verbal abstract reasoning was above average. With regard to verbal memory, immediate and delayed recall of short stories were both above average. Recognition of story content was intact. Total recall of a word list across three learning trials was high average. Delayed recall was average and recognition was intact. Immediate recall of a set of designs was below expectation on the first two learning trials, but high average on the third learning trial. Delayed recall was high average. Recognition of the designs was intact. Lastly, on brief self-report mood questionnaires Ms. Pace scored in the moderate range for symptoms of depression and within mild range for symptoms of anxiety. BALL COACH documented in this encounter Plan of Treatment Upcoming Encounters Date Type Department Care Team (Late st Contact Info) Description 02/23/2024 1:00 PM FOOTBALL COACH Telemedicine [facility] [address] [place] [id number] Lupe Graf PA-C [address] [place] [address] 02/24/2024 2:00 PM FOOTBALL COACH Telemedicine [facility] [address] [place] [address] Angela Tinajero PharmD [address] [place] [address] documented as of this encounter Procedures Procedure Name Priority Date/Time Associated Diagnosis Comments NEUROPSYCHOLOGICAL EXAM Routine 01/03/20 8:59 AM FOOTBALL COACH documented in this encounter Results * NEUROPSYCHOLOGICAL EXAM (01/03/2024 8:59 AM FOOTBALL COACH) Narrative EXTERNAL RESULTS - 01/03/2024 8:59 AM FOOTBALL COACH Krystin Lui, Joss, JAMAAL 01/04/2024 11:17 AM NEUROPSYCHOLOGICAL EVALUATION DATE(S) OF SERVICE: Testin01/03/2024 NEUROPSYCHOLOGICAL PROFILE: Information presented in the table below is a gross summary of the patient's cognitive performance based upon objective test results, normative data, functional reports, clinical observation, and professional judgment. This table should not be used in isolation. Variability and other important patterns of performance may not be fully reflected here. Refer to the sections below entitled Diagnostic Summary and Detailed Test Results for appropriate context and greater specificity. Within Normal Limits Subtle Mild Moderate Severe Processing Speed X Language X Visuospatial X Learning X Memory: Retrieval X Memory: Recog X Attention X Executive X Global Rating Performance Validity X Mood X DIAGNOSTIC IMPRESSIONS: Essentially normal neuropsychological profile DIAGNOSTIC SUMMARY: Results of this neuropsychological evaluation are essentially normal. Ms. Pace scored within the normal range across tasks of auditory attention/concentration, processing speed, executive functioning, visuoperceptual reasoning, language, and memory. With regard to memory more specifically, scores on verbal memory tasks were average to above average (word list, short stories). Immediate recall of a set of designs was below expectation on the first two learning trials, but above average on the third learning trial. Delayed recall of the set of designs was high average and recognition of them was intact. Mood assessment was suggestive of moderate symptoms of depression and mild symptoms of anxiety. Ms. Pace's test results suggest that the increased difficulty she's noticing with memory and word-finding in her day-to-day affairs most likely reflect normal cognitive efficiencies that people experience. Symptoms of depression and anxiety can also contribute to cognitive inefficiencies. Concerns about memory can also lead to some hypervigilant monitoring of one's cognitive functioning and normal cognitive blips might be misinterpreted as pathological. Ms. Pace could also potentially be noticing some subtle age-related cognitive changes. At this time, Ms. Pace's essentially normal pattern of performance across cognitive domains assessed provides no compelling evidence of relative weakness or object impairment which would raise concern about early signs of a neurodegenerative condition. RECOMMENDATIONS: 1. Neurology and Primary Care. Ms. Pace is scheduled for a follow-up appointment with Hailey Glover, ANPR, PIT CLERK, on 01/26/2024 during which time neuropsychological test results will be reviewed and incorporated into diagnostic impressions and recommendations. Results will also be shared with Ms. Pace's primary care provider, Lupe Graf PA-C. 2. Behavioral Health. Ms. Pace had elevated scores on brief mood questionnaires assessing symptoms of depression and anxiety. She was previously referred to Psychiatry to discuss potential changes to her anti-depressant medications, but it does not appear an appointment was scheduled. She can call [phone] to schedule an appointment. Ms. Pace indicated she hasn't found therapy particularly helpful in the past, but she's encouraged to keep an open mind and consider finding a therapist with whom she connects. 3. Compensatory Strategies. Ms. Pace should continue to routinely use organizational tools and memory aids, such as to-do lists/written reminders, phone alarms, a calendar, audible reminders (e.g., phone alarms, Reymundo reminders). Having set locations for important items is recommended. When setting an item down, take a moment to be mindful about where you're setting the item - mentally state where you are putting it and what else is in that area. The Smart But Scattered Guide to Success: How to Use Your Brain's Executive Skills to Keep Up, Stay Calm, and Get Organized at Work and at Home by Dr. Swetha Olivares and Dr. Alcon Dueñas has useful advice for people who have difficulties with attention, organization, and memory in their day-to-day affairs. 4. Promoting Overall Health. Ms. Pace is encouraged to remain physically, socially, and cognitively active to promote her overall health and well-being. 5. Neuropsychological Re-Evaluation. Current results can serve as a point of comparison. If there are concerns about a progressive decline in cognitive functioning, a neuropsychological re-evaluation can be arranged. ____ REFERRING CLINICIAN: Hailey Glover, CARA, PIT CLERK [address] [facility] / [place] [address] REASON FOR CONSULTATION: Neuropsychological evaluation to assess the patient's current cognitive status, rule out an organic basis for impairment, assist with diagnostic clarification, and offer treatment recommendations. CLINICAL HISTORY: Ms. Shawna Pace is a 63-year-old, right-handed, white female who presented for a neuropsychological evaluation. Per review of records, in 2017 Ms. Pace was seen by Dr. Garcia in Neurology. Per his note, Ms. Pace reported 3 episodes of experiencing cognitive difficulty followed by a headache while at work during high stress situations. She apparently was supposed to respond promptly to a conversation and seemed to lose her train of thought. She apparently could hear what people were saying but their voices seemed to be coming from a distance and muffled. She indicated the left her face felt numb and then had a headache, nausea, unsteadiness, and visual changes characterized by a trickle like a wave of objects moving. The headache would last a day or two. Her neurological examination was notable for difficulty with tandem walking. Dr. Garcia's impression was that these episodes were migraine headaches. In May and June 2023 Ms. Pace reported concerns about her memory and hand tremor to her pharmacist, Dr. Vergara. Dr. Vergara recommended Ms. Pace follow-up with her primary care provider, Lupe Graf PA-C. Lupe Graf PA-C, referred Ms. Pace to Neurology and to Occupational Therapy. A referral to Psychiatry was also placed for possible anti-depressant medication changes, though it does not appear an appointment was scheduled. On 07/11/2023 Ms. Pace was seen by YANG Peralta/Emeka. Per her note, Ms. Pace indicated that she had been noticing more forgetfulness, such as forgetting plans she set up with friends. Word-finding difficulties were also reported. Ms. Pace indicated that she has dyslexia which has been associated with some lifelong challenges, such as with difficulty with directions. Ms. Pace obtained a score of 27/30 on the MoCA. Memory compensatory strategies were reviewed. On 09/08/2023 Ms. Pace was seen in Neurology by Hailey Glover APRN, PIT CLERK. Per her note, Ms. Pace reported having a hand tremor for about 5 years which had progressively worsened, making it hard to do some activities she used to enjoy, such as drawing and painting. Changes with memory were reported to have emerged over the past two years, such as forgetting recent events, asking a question repeatedly, and difficulties recalling names. Difficulties expressing thoughts and maintaining attention/focus were also endorsed. Visual misperceptions and balance difficulties were reported. It was noted Ms. Pace's mother had Lewy body dementia. Ms. Pace's neurological examination was notable for an ataxic tandem walk and a resting tremor in the head and bilateral upper extremities. Hailey Glover APRN, PIT CLERK, recommended lab work, an EMG to check for neuropathy, neuroimaging of the brain and cervical spine, and a neuropsychological evaluation. During the current evaluation on 01/03/2024, Ms. Pace reported concerns about increased difficulty with memory. She said she'll think of something she needs to do, such as call someone, but then forget to complete the task. She said she forgets things that were recently discussed, such as making plans with a friend. Ms. Pace thinks she is repeating questions to others. Ms. Pace indicated she is misplacing items more frequently. She said at work there are set procedures and sometimes she will be in the middle of a step and feel lost, needing to retrace what she had already completed. Ms. Pace said there are some events from when her children were younger that she thinks she should remember but does not. Ms. Pace reported word-finding difficulties. She said sometimes she thinks she misunderstood something or will respond to others with a comment that is not quite right. She reported losing her train of thought and feeling like her mind goes blank sometimes. Ms. Pace reported she was diagnosed with dyslexia as a child. She said she had a lot of difficulty learning to read but after learning to read became an avid reader. She indicated she will sometimes miss things when reading and that seems to be happening more. Ms. Pace said she has always had difficulties with spatial navigation and knowing left from right. She also reported math has always been i mpossible for her. Ms. Pace said her hand tremor can vary, but it interferes with her handwriting. She denied her handwriting has become smaller. She reported some balance difficulties and occasional falls. Ms. Pace denied dream enactment behavior. She had been diagnosed with obstructive sleep apnea (PIPO) in the past. She indicated she lost weight and does not believe she has PIPO anymore. With regard to visual misperceptions, Ms. Pace said when looking at lines or a dot on a surface the lines/dot seem to move downward. She believes she has experienced this most of her life. She denied experiencing well-formed visual hallucinations. Ms. Pace is independent in managing instrumental activities of daily living. She reported she has set up a lot of reminders to help her keep track of what she needs to do when. DIAGNOSTIC STUDIES: Results from the patient's brain MRI dated 09/20/2023 showed mild chronic microvascular ischemic change, mild generalized cerebral atrophy, and mild cerebellar atrophy. Per NeuroQuant, the hippocampal occupancy score was at the 91st normative percentile. Results from the patient's cervical spine MRI dated 09/20/2023 showed mild degenerative changes and stenosis. There was no high-grade cervical spinal canal narrowing. Results from the patient's EMG dated 10/11/2023 were normal. MEDICAL HISTORY: In addition to what is noted above, Ms. Pace has diabetes. She was hospitalized in June 2020 with diabetic ketoacidosis within the context of increased depression and non-adherence with her insulin and glucose monitoring. Ms. Pace has hypertension, hyperlipidemia, a history of anomalous atrioventricular excitation (s/p ablation), and a history of gastric bypass surgery. She has hearing loss and said wearing an Airbud/earbud helps. She has hearing aids but doesn't use them. Ms. Pace said she probably had a few concussions when she was young. She denied a history of seizures. FAMILY MEDICAL HISTORY: Ms. Pace's mother had Lewy body dementia. She said her mother's symptoms probably started in her late 60s and she at the age of 78. There is no other known family history of dementia. CURRENT MEDICATIONS: Ms. Pace has a current medication list which includes the following prescription(s): atorvastatin, bupropion, freestyle fredy 3 sensor, cyanocobalamin, glucosamine-chondroitin, hydrochlorothiazide, irbesartan, metformin xr, metronidazole, womens 50+ multi vitamin/min, polyethylene glycol, ozempic (2 mg/dose), sertraline, trazodone, and vitamin d (ergocalciferol). SOCIAL HISTORY: Ms. Pace was born in [place] and lived there until she was around the age of 4 or 5. She then moved to the [facility] to live with her mother. As noted above, Ms. Pace reported difficulties learning to read and indicated she was diagnosed with dyslexia. She said school was very challenging for her. Ms. Pace graduated high school. She said her mother told her she was not smart enough to go to college. Ms. Pace works at [employer] in the [place]. She's worked at [employer] for about 10 to 11 years. She previously worked at [employer]. 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 Ms. Pace and her have been 34 years. They have 2 young adult sons. In terms of hobbies/interests, Ms. Pace enjoys spending time with her horse, though indicated she no longer rides her. Ms. Pace listens to audio books and likes doing art work. She has some friends she sees every 2 to 3 weeks and sees a group of very close friends who live further away every month or two. PSYCHIATRIC HISTORY: Ms. Pace has a history of depression and anxiety. She indicated her mother was narcissistic and cruel. Ms. Mitchell said she has always been down on herself. She has had passive suicidal ideation. She's been in counseling in the past, but said she didn't find it very helpful. Ms. Hoover'ulises anti-depressants are prescribed by her primary care provider. SUBSTANCE USE HISTORY: With regard to alcohol use, Ms. Pace said she used to drink one or two Bloody Yuki's in the evening several days of the week but after being told her alcohol use could cause memory difficulties she cut back. She said now she'll occasionally have a drink if out with a friend. Ms. Pace sometimes eats a gummy to help her sleep; she wasn't sure if the gummies contain THC or CBD. She denied other recreational drug use. MENTAL-STATUS EXAMINATION AND BEHAVIORAL OBSERVATIONS: Ms. Pace arrived early for the appointment, unaccompanied. She was appropriately dressed and groomed. Upon casual observation, ambulation was unremarkable. A bilateral action and positional hand tremor was noticed. Both hearing and vision appeared adequate for the purposes of testing. During brief mental status testing, Ms. Pace was fully oriented. She could state the name of the current president and several immediate predecessors. She correctly answered what happened to Hiren Yip and on 10/18/2000, and was able to cite a couple of current event topics. Ms. Pace was alert throughout the evaluation. Receptive language functions were intact to conversation. She appeared to understand test instructions without difficulty. Expressive speech was normal in volume, rate, and prosody. Thought processes were generally linear and goal-directed. Response latencies were within the normal range. Ms. Pace demonstrated a full range of affect. She noted she was somewhat anxious during the testing session and tended to bounce her leg. Ms. Pace was friendly, engaged, and cooperative throughout the evaluation. Ms. Pace was quite self-critical of her perceived performance. She appeared to persist on challenging items. Scores on freestanding and embedded measures of performance validity were adequate. The following results are believed to be an accurate reflection of her current level of cognitive functioning. NEUROPSYCHOLOGICAL MEASURES ADMINISTERED: In addition to chart review and clinical interview, the following neuropsychological measures were administered: Animal Naming Ramos Anxiety Inventory Ramos Depression Inventory - Second Edition [place] Naming Test Brief Visuospatial Memory Test - Revised Clock Drawing Test Controlled Oral Word Association Test Rona-Goel Executive Functioning System, Selected subtests Miller Verbal Learning Test- Revised Dimitris-O Complex Figure Copy [place] Making Test, Parts A and B Too Adult Intelligence Scale - Fourth Edition, Selected subtests Too Memory Scale - Fourth Edition, Selected subtests Wide Range Achievement Test -4, Selected subtests [place] Card Sorting Test - 64 Card Version Various freestanding and embedded measures of performance validity Thank you, Hailey Glover APRN, PIT CLERK, for involving me in the care of this patient. Please feel free to contact me if I can be of further assistance. Neurobehavioral status exam: 35 minutes. Test administration and scoring by accounts payable technician: 177 minutes. Test evaluation services, including clinical integration, data interpretation, clinical decision making, treatment planning, and documentation: 165 minutes. Please note: This report was created using speech-recognition software and may contain unintended word-substitutions. Krystin Lui PsyD, ABPP, LP Board Certified in Clinical [place] [address] DETAILED TEST RESULTS: Word reading, often used to estimate baseline functioning/educational attainment, was average. Auditory attention/concentration was average to above average. Processing speed was average on a digit-symbol coding task and on a visual scanning and numeric sequencing task. Rapid color naming was average and rapid word reading was above average. With regard to executive functioning, cognitive flexibility/set-shifting was average on an alpha-numeric sequencing task. Performance on a task of response inhibition was average. On the subsequent section which added in a set-shifting component performance was above average. Novel problem-solving as assessed by a card-sorting task was intact. Copy of a complex figure was within the normal range. Lines were tremulous. Clock drawing was notable for incorrect placement of the minute hand. Visuoperceptual reasoning on a block design task was in the average range. Confrontation naming was in the slightly lower end of the average range; phonemic cues provided benefit. Both phonemic and semantic fluency were above average. Verbal abstract reasoning was above average. With regard to verbal memory, immediate and delayed recall of short stories were both above average. Recognition of story content was intact. Total recall of a word list across three learning trials was high average. Delayed recall was average and recognition was intact. Immediate recall of a set of designs was below expectation on the first two learning trials, but high average on the third learning trial. Delayed recall was high average. Recognition of the designs was intact. Lastly, on brief self-report mood questionnaires Ms. Pace scored in the moderate range for symptoms of depression and within mild range for symptoms of anxiety. Hailey Glover APRN, CNP HP DUMMY COD ES EXTERNAL RESULTS documented in this encounter Visit Diagnoses Diagnosis Type 2 diabetes mellitus without complication, unspecified whether intermediate frame tender insulin use (HRC)- Primary Essential hypertension (HRC) Unspecified essential hypertension Hyperlipidemia with target LDL less than 100 (HRC) Other and unspecified hyperlipidemia Complaints of memory disturbance Memory loss Depression with anxiety (HRC) Dysthymic disorder documented in this encounter Care Teams [employer] Sales Consultant Relationship Specialty Start Date End Date Lupe Graf PA-C [address] [place] [address] PCP - General Physician Tank Builder Helper 12/05/14 documented as of this encounter
--- OUTSIDE RECORDS SUMMARY | 2024-02-18 16:50 | XMS_ITS | Encounter Summary ---
Author Organization [facility] Address [address] [address] Care Team Providers Care Fence Rider Name Role Phone Lupe Graf PA-C Primary Care Provider [phone] Encounter Details Date Type Department Care Team (Late Contact Info) Description 06/14/2017 Correspondence None Inactive, Provider DME PATIENT INSTRUCTION/PLAN OF CARE Social History Tobacco Use Types Packs/Day Years [...] (Late Contact Info) Description 02/23/2024 1:00 PM [facility] Telemedicine [facility] [address] [place] [phone] Lupe Graf PA-C [address] [place] [address] 02/24/2024 2:00 PM [facility] Telemedicine [facility] [address] [place], [place] [id number] Angela Tinajero PharmD [address] [place] [address] documented as of this encounter Visit Diagnoses Not on filedocumented in this encounter Care Teams Fence Rider Relationship Specialty Start Date End Date Lupe Graf PA-C [address] [place] [address] PCP - General Physician [employer] First 12/05/14 documented as of this encounter
--- OUTSIDE RECORDS SUMMARY | 2024-02-18 16:50 | XMS_ITS | Clinical Summary ---
[facility] Address [address] [place] [address] Care Team Providers Care Bridge Opener Name Role Phone Lupe Graf PA-C Primary Care Provider [phone] Source Comments You are receiving this document as you are listed as the primary care provider,follow-up provider, or the patient has been referred to you for consultation.This is in compliance with the Medicare and[facility] Cent[facility] EHR Incentive Program,which states Providers who transition their patient to another setting of careor provider of care or refers their patient to another provider of care shouldprovide summary care record for each transition of care or referral. [employer] Allergies Active Allergy Reactions Criticality Noted Date Comments Aspirin 08/10/2007 PN: LW Reaction: h/o gastric bypass Morphine 07/18/2018 Penicillins Hives High 07/15/2008 Other reaction(s): Shortness Of Breath Other reaction(s): Shortness Of Breath Medications Medication Sig Dispensed Refills Start Date End Date Status Multiple Vitamins-Minerals (WOMENS 50+ MULTI VITAMIN/MIN) TABS Take 1 Tablet by mouth daily. Active Glucosamine-Chondr oitin (GLUCOSAMINE CHONDR COMPLEX OR) Take 1 Capsule by mouth daily. Active metroNIDAZOLE (METROCREAM) 0.75 % cream Apply topically two times a day. 60 g 11 01/04/2022 Active polyethylene glycol (MIRALAX) 17 g packet Take 17 g by mouth daily as needed for Constipation. Active cyanocobalamin (SWUAQQUL42) 1000 MCG/ML injection INJECT 1 ML (1,000 MCG) INTRAMUSCULARLY EVERY 30 DAYS 10 mL 3 05/17/2023 Active semaglutide (OZEMPIC, 2 MG/DOSE,) 8 MG/3ML SOPN injectionIndicatio ns:Well controlled type 2 diabetes mellitus (HRC) Inject 2 mg subcutaneously once every week. 9 mL 3 06/01/2023 Active irbesartan (AVAPRO) 300 MG tabletIndications: Essential hypertension (HRC) Take 1 Tablet (300 mg) by mouth daily. 90 Tablet 3 08/22/2023 Active hydroCHLOROthiazid e (ORETIC) 12.5 MG tabletIndications: Essential hypertension (HRC) Take 1 Tablet (12.5 mg) by mouth daily. 90 Tablet 3 09/28/2023 Active Continuous Glucose Sensor (FREESTYLE LEYDA 3 SENSOR)Indications :Type 2 diabetes mellitus without complication, with long-term current use of insulin (HRC) USE 1 SENSOR EVERY 14 DAYS 7 Each 3 10/27/2023 Active metFORMIN XR (GLUCOPHAGE XR) 500 MG 24 hour release tablet TAKE 4 TABLETS (2,000 MG) DAILY - GENERIC FOR GLUCOPHAGE XR 360 Tablet 2 11/10/2023 Active atorvastatin (LIPITOR) 20 MG tabletIndications: Controlled type 2 diabetes mellitus without complication, without long-term current use of insulin (HRC) Take 1 Tablet (20 mg) by mouth daily. 90 Tablet 2 11/21/2023 Active buPROPion (WELLBUTRIN XL) 300 MG 24 hour release tabletIndications: Moderate episode of recurrent major depressive disorder (HRC) Take 1 Tablet (300 mg) by mouth daily. 90 Tablet 3 11/21/2023 Active sertraline (ZOLOFT) 100 MG tabletIndications: Major Depressive Disorder Take 1.5 Tablets (150 mg) by mouth daily. Indications: Major Depressive Disorder 135 Tablet 3 11/21/2023 Active traZODone (DESYREL) 100 MG tabletIndications: Moderate episode of recurrent major depressive disorder (HRC),DIMA (generalized anxiety disorder) (HRC) Take 1 Tablet (100 mg) by mouth daily at bedtime. 90 Tablet 3 11/21/2023 Active Vitamin D, Ergocalciferol, 1.25 MG (79673 UT) CAPSIndications:Vi tamin D deficiency (HRC) TAKE 1 CAPSULE WEEKLY 12 Capsule 3 12/10/2023 Active propranolol (INDERAL) 10 MG tablet Take 1 Tablet (10 mg) by mouth two times a day. 60 Tablet 4 01/26/2024 5 Active Active Problems Patient Care Coordination No te Formatting of this note migh t be different from the original. HP DCM Care Management Shawna Pace Case closed due to goals met. Genesis Coates RN 09/18/2021, 1:37 PM HP DCM Care Management Shawna Pace Patient is engaged in disease management for diabetes Genesis Coates RN 08/14/2021, 12:54 PM Problem Noted Date Diagnosed Date Rosacea 01/04/2022 Other specified eating disorder 11/19/2020 Diabetic ketoacidosis withou t coma associated with type 2 diabetes mellitus 06/09/2020 Depression, major, recurrent, moderate PIPO (obstructive sleep apnea) 06/14/2017 Essential hypertension 12/02/2016 S/P gastric bypass 06/03/2014 B12 deficiency anemia 06/03/2014 Diabetes mellitus, type II 05/30/2013 Iron deficiency anemia 05/30/2013 Vitamin D deficiency 05/30/2013 Depression 05/30/2013 Hyperlipidemia with target LDL less than 100 Overview (10/16/2014): ICD 10 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 Encounters Date Type Department Care Team Description 01/26/2024 7:00 AM URBAN DESIGNER Telemedicine Neurology at [facility] [address] [place] [address] Hailey Glover APRN, MARKET RELATIONSHIP MANAGER Tremor (Primary Dx); Anxiety (HRC); Depression, unspecified depression type 01/09/2024 Notes/Orders PN CENTRALIZED OUTREACH [address] [place] [address] Daisha Casillas PA-C Controlled type 2 diabetes mellitus without complication, without long-term current use of insulin (HRC) 01/03/2024 8:15 AM URBAN DESIGNER Office Visit [facility] [address] [facility] [place] [address] Krystin Lui PsyD, LP Cognitive complaints (Primary Dx) 01/03/2024 Procedure Visit [facility] [address] [facility] [place] [address] Krystin Lui PsyD, LP 12/10/[address] [id number] Lupe Graf PA-C Refill (Vitamin D, Ergocalciferol, 1.25 MG (27761 UT) CAPS [Pharmacy Med Name: VITAMIN D2 CAP 50,000 UNITS]) 11/21/2023 5:20 PM CDT Lab Visit Laboratory at [address] [phone] Paresthesia (Primary Dx); Type 2 diabetes mellitus without complication, without long-term current use of insulin (HRC); Essential hypertension (HRC) 11/21/2023 4:30 PM CDT Office Visit [address] [phone] Lupe Graf PA-C Essential hypertension (HRC) (Primary Dx); Type 2 diabetes mellitus without complication, without long-term current use of insulin (HRC); Controlled type 2 diabetes mellitus without complication, without long-term current use of insulin (HRC); Moderate episode of recurrent major depressive disorder (HRC); DIMA (generalized anxiety disorder) (HRC) from Last 3 Months Immunizations Name Administration Dates Next Due Flu Vac (3+ yrs) 10/18/2012, 2,11/06/2002,1999,11/21/1998 Flu Vac Preserv Free (3+yrs) 12/09/2015, 12/10/2010,10/17/2009,2008,04/13/2007,03/25/2006 [id number] 01/29/2009 HepB Adult (Engerix-B, 20+ y rs, 3 dose series) 04/20/2017,08/19/1998 HepB Ped/Adol (0-18 yrs) 01/07/1999 Influenza (Flucelvax), Prese rv Free QIV 12/20/2022 Influenza IIV4 (Quadrivalent ) 0.5mL (05991) 01/05/2022,02/02/2021,12/12/2019,2018,12/01/2017,11/17/2016,10/30/2013 Influenza ccIIV3 6 months+ (Flucelvax) 11/21/2023 Influenza, Unspecified Formulation 10/18,11/08/2011,12/10/2010,2009,01/29/2009,04/13/2007,03/25/2006 Moderna COVID-19 12+ 11/21/2023 PPSV23 (Pneumovax) 04/13/2007 Pfizer Bivalent 12+ 01/05/2022 Pfizer COVID-19 12+ 12/20/2022 Pfizer Monovalent 12+ Purple Top 02/02/2021,04/07,03/28/2020 TDAP (ADACEL) 07/17/2007 Td 06/06/1997 Td (7+ yrs) 01/15/2015 Td, Preservative Free 01/15/2015 Tdap 12/10/2010 Zoster RZV (Shingrix) 07/21/2018,04/20/2017 Family History Medical History Relation Name Comments No Known Problems Father Cancer, Breast Mother MOM Hypertension Mother No Known Problems Maternal Grandfather No Known Problems Maternal Grandmother No Known Problems Paternal Grandfather No Known Problems Paternal Grandmother Cancer, Ovary Negative Family History Cataract Negative Family History Glaucoma Negative Family History Macular Degeneration Negative Family History Retinal Detachment Negative Family History Relation Name Status Comments Father Alive Mother Maternal Grandfather Maternal Grandmother Paternal Grandfather Paternal Grandmother Social History Tobacco Use Types Packs/Day Years [...] Sign Reading Time Taken Comments Blood Pressure 128/72 11/21/2023 4:36 PM CDT Pulse 88 11/21/2023 4:36 PM CDT Temperature 36.8 C (98.3 F) 11/21/2023 4:36 PM CDT Respiratory Rate 14 11/21/2023 4:36 PM CDT Oxygen Saturation 98% 06/10/2020 6:00 AM CDT Inhaled Oxygen Concentration - - Weight 68.3 kg (150 lb 8 oz) 11/21/2023 4:36 PM CDT Height 176.5 cm (5' 9.5) 11/21/2023 4:36 PM CDT Body Mass Index 21.91 11/21/2023 4:36 PM CDT Plan of Treatment Upcoming Encounters Date Type Department Care Team (Late st Contact Info) Description 02/23/2024 1:00 PM URBAN DESIGNER Telemedicine [facility] [address] [place] [phone] Lupe Graf PAGreg [address] [place] [address] 02/24/2024 2:00 PM URBAN DESIGNER Telemedicine [facility] [address] [place], [place] [phone] Angela Tinajero, PharmD [address] [place], [place] [phone] Health Maintenance Due Date Last Done Comments Pneumococcal (2 - PCV) 04/12/2008 04/13/2007 HepB (3) 06/15/2017 04/20/2017, 02/1998, 08/19/1998 Diabetes: Foot Exam 08/29/2018 08/29/2017, 6 Adult Preventive Visit 12/11/2020 12/12/2019 Mammogram 09/25/2022 09/25/2021, 05/09, 12/26/2019, Additional history exists RSV (1 - Risk 60-74 years 1-dose series) 2022 Diabetes: Eye Exam 12/21/2023 12/20/2022, 1 02/19/2022, 02/05/2022, Additional history exists Diabetes: HGBA1C 05/21/2024 11/21/2023, , 12/08/2022, Additional history exists MTM Targeted 11/01/2024 11/02/2023, 09/08, 09/28/2023, Additional history exists Diabetes: Creatinine 11/20/2024 11/21/2023, 09/08/2023, 05/30/2023, Additional history exists Diabetes: Urine Microalbumin 11/20/2024 11/21/2023, 12/08/2022, 07/24/2021, Additional history exists Cervical Cancer Screening 12/11/2024 12/12/2019, DTaP/Tdap/Td (5 - Tdap) 01/15/2025 01/16/20 15, 01/15/2015, 12/10/2010, Additional history exists Diabetes: Lipid Panel 05/29/2028 05/30/2023 , 01/05/2022, 08/18/2020, Additional history exists Colonoscopy 12/12/2029 12/13/2019, 05/2019, 07/16/2014, Additional history exists Hep C Screening (Preventive Services) Addressed 11/07/2012 (Historical Completion) Overridden with the intention of not completing the topic HIV Screening (Preventive Services) Completed 12/04/2012, 11/07/2012 (Historical Completion) Zoster/Shingles Completed 07/21/2018, 04/20/2017 COVID-19 Vaccine Completed 11/21/2023, , 01/05/2022, Additional history exists Influenza Completed 11/21/2023, 12/08, 01/05/2022, Additional history exists HepA Aged Out No longer eligi ble based on patient's age to complete this topic Hib Aged Out No longer eligi ble based on patient's age to complete this topic IPV (Polio) Aged Out No longer eligi ble based on patient's age to complete this topic MCV4 Aged Out No longer eligi ble based on patient's age to complete this topic Procedures Procedure Name Priority Date/Time Associated Diagnosis Comments NEUROPSYCHOLOGICAL EXAM Routine 01/03/20 24 8:59 AM URBAN DESIGNER URINE CONTAINER, 24 HOUR Routine 024 5:29 PM CDT Paresthesia CONTAINER TEST Routine 11/21/2023 5:29 PM CDT Paresthesia BASIC METABOLIC PANEL Routine 11/21/2023 5:25 PM CDT Essential hypertension (HRC) ALBUMIN/CREAT RATIO Routine 11/21/2023 5 :25 PM CDT Type 2 diabetes mellitus without complication, without long-term current use of insulin (HRC) HGB A1C Routine 11/21/2023 5:25 PM CDT Type 2 diabetes mellitus without complication, without long-term current use of insulin (HRC) LIPID PANEL & DIRECT LDL (IF NEEDED) Routine 05/30/2023 7:17 AM CDT Type 2 diabetes mellitus without complication, with long-term current use of insulin (HRC) MM MAMMOGRAM SCREENING BILAT W 3D REYES W CAD Routine 09/25/2021 1:14 PM CDT BOWEN (DIABETIC EYE EXAM) 03/04/2020 COLONOSCOPY S 12/13/2019 PAP TEST Routine 12/12/2019 1:41 PM URBAN DESIGNER Routine health maintenance from Last 3 Months or Most Recently Relevant to Health Maintenance Results * NEUROPSYCHOLOGICAL EXAM (01/03/2024 8:59 AM URBAN DESIGNER) Narrative EXTERNAL RESULTS - 01/03/2024 8:59 AM URBAN DESIGNER Krystin Lui, Joss, JAMAAL 01/04/2024 11:17 AM [...] a follow-up appointment with Hailey Glover, ANPR, MARKET RELATIONSHIP MANAGER, on 01/26/2024 during which time neuropsychological test [...] an appointment was scheduled. She can call [phone] to schedule an appointment. Ms. Pace indicated [...] be arranged. ____ REFERRING CLINICIAN: Hailey Glover, FOOD SERVICE AMBASSADOR, MARKET RELATIONSHIP MANAGER [address] [facility] [place] [address] REASON FOR CONSULTATION: Neuropsychological evaluation to assess [...] seen in Neurology by Hailey Glover APRN, MARKET RELATIONSHIP MANAGER. Per her note, Ms. Pace reported having [...] and bilateral upper extremities. Hailey Glover APRN, MARKET RELATIONSHIP MANAGER, recommended lab work, an EMG to check [...] includes the following prescription(s): atorvastatin, bupropion, freestyle leyda 3 sensor, cyanocobalamin, glucosamine-chondroitin, hydrochlorothiazide, irbesartan, metformin xr, metronidazole, womens 50+ multi vitamin/min, polyethylene glycol, ozempic (2 mg/dose), sertraline, trazodone, and vitamin d (ergocalciferol). SOCIAL HISTORY: Ms. Pace was born in [place] and lived there until she was around the age of 4 or 5. She then moved to the [facility] to live with her mother. As noted above, Ms. Pace reported difficulties learning to read and indicated she was diagnosed with dyslexia. She said school was very challenging for her. Ms. Pace graduated high school. She said her mother told her she was not smart enough to go to college. Ms. Pace works at [employer] in the [employer]. She's worked at [employer] for about 10 to 11 years. She previously worked at [employer]. 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 [...] Inventory Ramos Depression Inventory - Second Edition [place] Naming Test Brief Visuospatial Memory Test - Revised Clock Drawing Test Controlled Oral Word Association Test Rona-Goel Executive Functioning System, Selected subtests Miller Verbal Learning Test- Revised Dimitris-O Complex Figure Copy Whipple Making Test, Parts A and B Too Adult Intelligence Scale - Fourth Edition, Selected subtests Too Memory Scale - Fourth Edition, Selected subtests Wide Range Achievement Test -4, Selected subtests [place] Card Sorting Test - 64 Card Version Various freestanding and embedded measures of performance validity Thank you, Hailey Glover APRN, MARKET RELATIONSHIP MANAGER, for involving me in the care of this patient. Please feel free to contact me if I can be of further assistance. Neurobehavioral status exam: 35 minutes. Test administration and scoring by template reproduction technician: 177 minutes. Test evaluation services, including clinical integration, data interpretation, clinical decision making, treatment planning, and documentation: 165 minutes. Please note: This report was created using speech-recognition software and may contain unintended word-substitutions. Krystin Lui PsyD, ABPP, LP Board Certified [place] [address] DETAILED TEST RESULTS: Word reading, often used [...] Glover APRN, CNP HP DUMMY COD ES Performing Organization Address City/[facility]/ZIP Co de Phone Number EXTERNAL RESULTS * Urine Container, 24 Hour (11/21/2023 5:29 PM CDT) Container Given Done 7:00 PM CDT [facility] Other Specimen Type 11/21/2023 5:29 PM CDT 11/21/2023 5:29 PM CDT Hailey Glover APRN, CNP LAB_1 Performing Organization Address City/[facility]/ZIP Co de Phone Number [facility] [address] [place] [address], [facility] * (ABNORMAL) BMP (11/21/2023 5:25 PM CDT) Sodium 140 136 - 145 mmol/L 11/21/2023 9:40 PM CDT [facility] Potassium 4.0 3.5 - 5.1 mmol/L 11/21/2023 9:40 PM T [facility] Chloride 107 98 - 109 mmol/L 11/21/2023 9:40 PM T [facility] CO2 24 20 - 29 mmol/L 11/21/2023 9:40 PM T [facility] Anion Gap 9 6 - 16 mmol/L 11/21/2023 9:40 PM T [facility] Calcium 9.9 8.4 - 10.4 mg/dL 11/21/2023 9:40 PM T [facility] BUN 11 7 - 26 mg/dL 11/21/2023 9:40 PM T [facility] Creatinine 0.65 0.55 - 1.02 mg/dL 11/21/2023 9:40 PM T [facility] Glucose 115(H) 70 - 100 mg/dL 11/21/2023 9:40 PM T [facility] Comment:The given reference range is for the fasting state. Non-fasting reference range for glucose is 70 - 180 mg/dL. GFR, Estimated >60 >60 mL/min/1. 73m2 11/21/2023 9:40 PM T [facility] Hours Fasting 0.0 8 - 12 Hours 11/21/2023 9:40 PM T [facility] Blood Venipuncture / Unknown 11/21/2023 5:25 PM CDT 11/21/2023 5:25 PM CDT Lupe Graf PA-C LAB_1 [facility] [address] * Albumin/Creatinine Ratio,Random Urine (11/21/2023 5:25 PM CDT) Albumin/Creati nine Ratio, Urine, Random 10 <30 mg/g 11/21/2023 9:55 PM CDT [facility] Albumin, Urine, Random 12.5 mg/L 11/21/2023 9:55 PM CDT [facility] Creatinine, Urine, Random 121 >20 mg/dL mg/dL 11/21/2023 9:55 PM CDT [facility] Urine Non-blood Collection / Unknown 11/21/2023 5:25 PM CDT 11/21/2023 5:31 PM CDT Lupe Graf PA-C LAB_1 Performing Organization Address [facility] de Phone Number [facility] [address] * (ABNORMAL) Hgb A1C (11/21/2023 5:25 PM CDT) Hemoglobin A1C 6.7(H) <=5.6 % 11/21/2023 9:45 PM CDT [facility] Estimated Average Glucose (Calc) 146 < 117 mg/dL 11/21/2023 9:45 PM T [facility] Comment:Estimated average gl ucose (eAG) converts A1c into glucose units (mg/dL) and estimates average glucose over the past approximately 3 months. The eAG reference interval (<117 mg/dL) corresponds to an A1c of <5.7%. Blood Venipuncture / Unknown 11/21/2023 5:25 PM CDT 11/21/2023 5:25 PM CDT Narrative [facility] - 11/21/2023 9:45 PM CDT For patients not previously diagnosed with diabetes: 5.7-6.4%: Increased risk for diabetes 6.5% and greater: Diagnostic for diabetes For patients diagnosed with diabetes: <8.0%: Goal of therapy for ages 18-75 Clinicians may recommend a higher or lower goal for specific individuals. Lupe Graf PA-C LAB_1 Performing Organization Address [facility] Co de Phone Number [facility] [address] * Lipid Panel and Direct LDL(If Needed) (05/30/2023 7:17 AM CDT) Cholesterol 170 0 - 199 mg/dL 05/30/2023 12:28 PM CDT [facility] Triglyceride 84 <=149 mg/dL 05/30/2023 12:28 PM CDT [facility] HDL Cholesterol 66 >=40 mg/dL 05/30/2023 12:28 PM CDT [facility] LDL, Calculated 87 <130 mg/dL 05/30/2023 12:28 PM CDT [facility] Non HDL Chol, Calculated 104 <=159 mg/dL 05/30/2023 12:28 PM CDT [facility] Cholesterol/HDL Ratio 2.6 <=5.0 05/30/2023 12:28 PM CDT [facility] Hours Fasting 12.0 8 - 12 Hours 05/30/2023 12:28 PM CDT [facility] Blood Venipuncture / Unknown 05/30/2023 7:17 AM CDT 05/30/2023 7:17 AM CDT Daisha Casillas PA-C LAB_1 [facility] [address] [facility] [address] [place] [address] * MM Mammogram Screening Bilat W 3D Reyes W CAD (09/25/2021 1:14 PM CDT) Anatomical Region Laterality Modality Breast Bilateral Mammography Impressions 09/25/2021 2:47 PM CDT : ACR BI-RADS Category 1: Negative RECOMMENDATION: Follow Up Imaging in 12 months - Bilateral The results and recommendations of this examination will be communicated to the patient. Narrative 09/25/2021 2:47 PM CDT MM MAMMOGRAM SCREENING BILAT W 3D REYES W CAD performed on 09/25/21 Compared to: 06/02/2020 MM Mammogram Screening Bilat W CAD, 12/26/2019 MM Mammogram Diag Bilat W 3D Reyes, and 09/19/2017 MM Mammogram Screening Bilat W Reyes W CAD FINDINGS: Bilateral screening mammogram was performed with the assistance of Computer-Aided Detection and breast tomosynthesis. The breasts are almost entirely fatty. There is no radiographic evidence of malignancy. Lupe Graf PA-C RAD EDIL * BOWEN (DIABETIC EYE EXAM) (03/04/2020) Interface Provider DUMMY/OTHER/AR * COLONOSCOPY S (12/13/2019) Lupe Graf PA-C DUMMY/OTHER/AR * PAP Test (12/12/2019 1:41 PM URBAN DESIGNER) Case Report Pap Case: [id number] Authorizing Provider: Pat Jiang MD Collected: 12/12/2019 1341 Ordering Location: [facility] Received: 12/12/2019 1524 and Gynecology First Screen: Breanna Benoit CT (ASCP) Specimen: Pap Test, Routine, Cervix/Endocervix 12/18/2019 8:01 AM [facility] Pap Specimen Adequacy Satisfactory for evaluation, endocervical/gonzales sformation zone component present. 12/18/2019 8:01 AM [facility] Pap Interpretation Negative for intraepithelial lesion or malignancy (NILM). 12/18/2019 8:01 AM [facility] Pap Disclaimer The Pap test is a screening test designed to aid in the detection of cervical cancer and its precursor lesions. It is not a diagnostic procedure and should not be used as the sole means of detecting cervical cancer. Both false-positive and false-negative results may occur. 12/18/2019 8:01 AM [facility] Gross Description The specimen is received in SurePath fixative and properly labeled. 1 Pap-stained SurePath slide is prepared. 12/18/2019 8:01 AM [facility] Embedded Images 0 8:01 AM [facility] Other Specimen Type ENTIRE ENDOCERVIX / Unknown 12/12/2019 1:41 PM URBAN DESIGNER 12/12/2019 3:24 PM URBAN DESIGNER Comment:LMP: No LMP recorded . Patient is postmenopausal. [place] [address], [facility] [phone] from Last 3 Months or Most Recently Relevant to Health Maintenance Advance Directives * Full Code (Latest Code Status on File) Date Activated Date Inactivated Comments 06/08/2020 3:27 PM 06/10/2020 2:25 PM Care Teams Bridge Opener Relationship Specialty Start Date End Date Lupe Graf PA-C [address] [place] [address] PCP - General Physician Baby Nurse 12/05/14
--- OUTSIDE RECORDS SUMMARY | 2024-02-18 16:50 | XMS_ITS | Encounter Summary ---
Author Organization [employer] Address [address], [place] [address] Care Team Providers Care Reimbursement Spec Name Role Phone Lupe Graf PA-C Primary Care Provider [phone] Encounter Details Date Type Department Care Team (Late Contact Info) Description 01/08/2015 Correspondence External to External, [place] [address] URGENT CARE AFTER VISIT SUMMARY Social History Tobacco Use Types Packs/Day Years Used Date Smoking Tobacco: Never Smokeless Tobacco: Never Sex and Gender Information Value Date Recorded Sex Assigned at Not on file Gender Identity Not on file Sexual Orientation Not on file documented as of this encounter Plan of Treatment Upcoming Encounters Date Type Department Care Team (Late Contact Info) Description 02/23/2024 1:00 PM CREATIVE COORDINATOR Telemedicine [facility] [address] [place] [phone] Lupe Graf PA-C [id number] [place] [phone] 02/24/2024 2:00 PM CREATIVE COORDINATOR Telemedicine [facility] [address] [place], [place] [phone] Angela Tinajero PharmD [address] [place], [place] [phone] documented as of this encounter Visit Diagnoses Not on filedocumented in this encounter Care Teams Reimbursement Spec Relationship Specialty Start Date End Date Lupe Graf PA-C [address] [place] [address] PCP - General Physician Inspector Fuel Hose 12/05/14 documented as of this encounter
--- OUTSIDE RECORDS SUMMARY | 2024-02-18 16:50 | XMS_ITS | Encounter Summary ---
Author Organization [employer] Address [address] [address] Care Team Providers Care Drain Tile Press Operator Name Role Phone Lupe Graf PA-C Primary Care Provider [phone] Encounter Details Date Type Department Care Team (Late Contact Info) Description 06/14/2017 Correspondence None Inactive, Provider INSTRUCTION CHECKLIST Social History Tobacco Use Types Packs/Day Years [...] (Late Contact Info) Description 02/23/2024 1:00 PM BAG CUTTER Telemedicine [facility] [address] [place] [phone] Lupe Graf PA-C [address] [place], [place] [phone] 02/24/2024 2:00 PM BAG CUTTER Telemedicine [facility] [address] [place], [place] [phone] Angela Tinajero PharmD [address] [place], [place] [phone] documented as of this encounter Visit Diagnoses Not on filedocumented in this encounter Care Teams Drain Tile Press Operator Relationship Specialty Start Date End Date Lupe Graf PA-C [address] [place] [address] PCP - General Physician Legal Coordinator 12/05/14 documented as of this encounter
--- OUTSIDE RECORDS SUMMARY | 2024-02-18 16:50 | XMS_ITS | Encounter Summary ---
Author Organization [employer] Address [address], [place] [address] Care Team Providers Care Aromatherapist Name Role Phone Lupe Graf PA-C Primary Care Provider [phone] Encounter Details Date Type Department Care Team (Late Contact Info) Description 01/09/2024 Notes/Orders PN CENTRALIZED OUTREACH [address] [place] [address] Daisha Casillas PA-C [address] [place], [place] [phone] Controlled type 2 diabetes mellitus without complication, without long-term current use of insulin (HRC) Social History Tobacco Use Types Packs/Day Years [...] Upcoming Encounters Date Type Department Care Team ([facility] Contact Info) Description 02/23/2024 1:00 PM BLACK TOP MACHINE OPERATOR Telemedicine [address] [phone] Lupe Graf PA-C [address] [place], [place] [phone] 02/24/2024 2:00 PM [facility] [address] [place], [place] [phone] Angela Tinajero PharmD [address] [place], [place] [phone] Scheduled Orders Name Type Priority Associated Diagnoses Orde r Schedule Hgb A1C Lab Routine Controlled type 2 diabetes mellitus without complication, without long-term current use of insulin (HRC) Expected: 01/09/2024, Expires: 04/08/2024 documented as of this encounter Visit Diagnoses Diagnosis Controlled type 2 diabetes mellitus without complication, without long-term current use of insulin (HRC) documented in this encounter Care Teams Aromatherapist Relationship Specialty Start Date End Date Lupe Graf PA-C [address] [place] [address] PCP - General Physician Head Soft Sugar Operator 12/05/14 documented as of this encounter
--- OUTSIDE RECORDS SUMMARY | 2024-02-18 16:50 | XMS_ITS | Encounter Summary ---
Author Organization [employer] Address [address] [address] Care Team Providers Care Nursing Care Partner Name Role Phone Lupe Graf PA-C Primary Care Provider [phone] Encounter Details Date Type Department Care Team (Late st Contact Info) Description 08/13/2016 Refill Order [facility] [address] [place], [place] [phone] Lupe Graf PA-C [address] [place] [address] Social History Tobacco Use Types Packs/Day Years Used Date Smoking Tobacco: Never Smokeless Tobacco: Never Sex and Gender Information Value Date Recorded Sex Assigned at Not on file Gender Identity Not on file Sexual Orientation Not on file documented as of this encounter Nursing Notes * Chad Brunson CMA - 08/16/2016 1:11 PM CDT Letter sent to pt. Chad Brunson CMA 08/16/2016, 1:11 PM documented in this encounter Plan of Treatment Upcoming Encounters Date Type Department Care Team (Late st Contact Info) Description 02/23/2024 1:00 PM DESIZING PAD OPERATOR Telemedicine [facility] [address] [place] [phone] Lupe Graf PA-C [address] [place] [address] 02/24/2024 2:00 PM [facility] [address] [place] [address] Angela Tinajero, PharmD [address] [place] [address] documented as of this encounter Visit Diagnoses Diagnosis Encounter for long-term (current) use of medications- Primary Encounter for long-term (current) use of other medications documented in this encounter Care Teams Nursing Care Partner Relationship Specialty Start Date End Date Lupe Graf PA-C [address] [place] [address] PCP - General Physician Misdraw Hand 12/05/14 documented as of this encounter
--- OUTSIDE RECORDS SUMMARY | 2024-02-18 16:50 | XMS_ITS | Encounter Summary ---
Author Organization [employer] Address [address] [address] Care Team Providers Care Cement Gun Operator Name Role Phone Lupe Graf PA-C Primary Care Provider [phone] Encounter Details Date Type Department Care Team (Late Contact Info) Description 04/29/2017 Correspondence [facility] [address] [place], [place] [phone] Lupe Graf PA-C [address] [place], [place] [phone] FMLA Social History Tobacco Use Types Packs/Day Years [...] st Contact Info) Description 02/23/2024 1:00 PM SPECIMEN ACCESSIONER Telemedicine [facility] [address] [place] [phone] Lupe Graf PA-C [address] [place], [place] [phone] 02/24/2024 2:00 PM SPECIMEN ACCESSIONER Telemedicine [facility] [address] [place], [place] [phone] Angela Tinajero, PharmD [address] [place] [address] documented as of this encounter Visit Diagnoses Not on filedocumented in this encounter Care Teams Cement Gun Operator Relationship Specialty Start Date End Date Lupe Graf PA-C [address] [place] [address] PCP - General Physician Software Qa Manager 12/05/14 documented as of this encounter
--- OUTSIDE RECORDS SUMMARY | 2024-02-18 16:50 | XMS_ITS | Encounter Summary ---
Author Organization [facility] Address [address], [place] [address] Care Team Providers Care Slab Inspector Name Role Phone Lupe Graf PA-C Primary Care Provider [phone] Encounter Details Date Type Department Care Team (Late st Contact Info) Description 01/26/2024 7:00 AM PROGRAMMER ANALYST HEALTH IT Telemedicine [facility] [address] [place] [address] Hailey Glover APRN, SPEECH COMMUNICATION PROFESSOR [address] [place] [address] Tremor (Primary Dx); Anxiety (HRC); Depression, unspecified depression type Social History Tobacco Use Types Packs/Day Years [...] on file documented as of this encounter Patient Instructions * Patient Instructions* Hailey Glover APRN, SPEECH COMMUNICATION PROFESSOR - 01/26/2024 7:00 AM PROGRAMMER ANALYST HEALTH IT Plan: -continue to focus on being physically/socially active, engaging in brain games, healthy diet. -continuing to work with primary care provider regarding mood/anxiety concerns -start propranolol 10 mg twice daily for essential tremor-please keep a diary of blood pressure andheart rate -follow up with me in 6-8 weeks in clinic regarding tremor Hailey Glover APRN, CNP 01/26/2024, 7:36 AM RAMMER ANALYST HEALTH IT * Attachments The following attachments cannot be sent through Care Everywhere. * Mediterranean Diet: General Info ([place]) * Tremor: Essential ([place]) documented in this encounter Progress Notes * Hailey Glover APRN, CNP - 01/26/2024 7:00 AM CST [facility] FOLLOW UP NOTE-virtual visit CC: Neuropsychological testing follow up HPI: Shawna Pace is a 63 y.o. old female who presents in follow up regarding neuropsychological testing follow up. Patient was most recently seen in Neurology Clinic on 09/08/2023. RECORDS REVIEW: Neuropsycological testing completed 01/02/2023 DIAGNOSTIC IMPRESSIONS: Essentially normal neuropsychological profile DIAGNOSTIC [...] about early signs of a neurodegenerative condition. CURRENT STATUS: Shawna presents via virtual visit unaccompanied. Reports great relief from normal neuropsychologicaltesting at this time. Would like to discuss her tremor more. Notes that she does not drink alcohol or significant amounts of caffeine. Patient describes postural tremor worsened when trying to do more intricate activities. Also notes worsening when having increase levels of anxiety. Patient notes that her son also tremors. Regarding patient's gait she reports this has improved and has not noticed any falls or weakness. She finds herself fairly steady on her feet. PERTINENT LABS/IMAGING/TESTING REVIEWED: Normal EMG testing on 10/11/2023. MRI on 09/20/2023 brain and cervical spine IMPRESSION: 1. Brain atrophy and presumed chronic microvascular ischemic changes as detailed above. No dementiaspecific pattern identified. 2. No acute infarct or acute intracranial hemorrhage. IMPRESSION: 1. Mild cervical spondylosis without high-grade cervical spinal canal narrowing. 2. At C5-C6, there is mild right and moderate left neural foraminal stenosis. 3. At C4-C5, there is mild right neural foraminal stenosis. Past medical, surgical, family, social history: Unchanged from office visit note dated . MEDICATIONS: Current Outpatient Medications Medication Sig Note Dispense Refill atorvastatin (LIPITOR) 20 MG tablet Take 1 Tablet (20 mg) by mouth daily. 90 Tablet 2 buPROPion (WELLBUTRIN XL) 300 MG 24 hour release tablet Take 1 Tablet (300 mg) by mouth daily. 90 Tablet 3 Continuous Glucose Sensor (FREESTYLE LEYDA 3 SENSOR) USE 1 SENSOR EVERY 14 DAYS 7 Each 3 cyanocobalamin (QWUUUHXY95) 1000 MCG/ML injection INJECT 1 ML (1,000 MCG) INTRAMUSCULARLY EVERY 30 DAYS 10 mL 3 Glucosamine-Chondroitin (GLUCOSAMINE CHONDR COMPLEX OR) Take 1 Capsule by mouth daily. 06/09/2020: OTC medication. Unable to verify if the patient is still taking this hydroCHLOROthiazide (ORETIC) 12.5 MG tablet Take 1 Tablet (12.5 mg) by mouth daily. 90 Tablet 3 irbesartan (AVAPRO) 300 MG tablet Take 1 Tablet (300 mg) by mouth daily. 90 Tablet 3 metFORMIN XR (GLUCOPHAGE XR) 500 MG 24 hour release tablet TAKE 4 TABLETS (2,000 MG) DAILY - GENERIC FOR GLUCOPHAGE XR 360 Tablet 2 metroNIDAZOLE (METROCREAM) 0.75 % cream Apply topically two times a day. 60 g 11 Multiple Vitamins-Minerals (WOMENS 50+ MULTI VITAMIN/MIN) TABS Take 1 Tablet by mouth daily. 06/09/2020: OTC medication. Unable to verify if the patient is still taking this polyethylene glycol (MIRALAX) 17 g packet Take 17 g by mouth daily as needed for Constipation. semaglutide (OZEMPIC, 2 MG/DOSE,) 8 MG/3ML SOPN injection Inject 2 mg subcutaneously once every week. 9 mL 3 sertraline (ZOLOFT) 100 MG tablet Take 1.5 Tablets (150 mg) by mouth daily. Indications: Major Depressive Disorder 135 Tablet 3 traZODone (DESYREL) 100 MG tablet Take 1 Tablet (100 mg) by mouth daily at bedtime. 90 Tablet 3 Vitamin D, Ergocalciferol, 1.25 MG (75796 UT) CAPS TAKE 1 CAPSULE WEEKLY 12 Capsule 3 No current facility-administered medications for this visit. ALLERGIES: Allergies Allergen Reactions Penicillins Hives Other reaction(s): Shortness Of Breath Other reaction(s): Shortness Of Breath Aspirin PN: LW Reaction: h/o gastric bypass Morphine PHYSICAL EXAM: There were no vitals taken for this visit. General: General examination reveals a well-developed female in no acute distress. Neurological Examination: Mental Status: Alert oriented x3. Mood and affect are appropriate to situation. Memory appeared intact. Attention span, concentration, and fund of knowledge are unremarkable. Speech and Language: Speech is clear, non dysarthric. Conversation language appears normal. Motor: Moves all limbs freely. Very mild bilateral upper extremity tremor ASSESSMENT: Shawna Pace is a 63 y.o. old female seen today regarding neuropsychological testing follow up. Neuropsychological testing essentially normal. Did provide education to patient regarding mood in cognitive function. She feels that things are well controlled at this time for her mood and anxiety. Discussed measures such as staying physically/socially active, continuing with brain engaging games, healthy diet. Regarding patient's tremor description appears to be more consistent with benign essential tremor although I am unable to rule out contributing factors of medications role in her tremors-would be reasonable to trial propranolol for this. Would like to see patient in clinic forrepeat exam in 6-8 weeks after starting this medication-at this time could also re-evaluate gait. Recommended checking blood pressure and heart rate monitor for changes given this medication. Regarding patient's gait changes noticed on exam-EMG testing was negative along with imaging of cervical spi ne(negative for spinal stenosis)-patient denies alteration gait/falls at this time but would like to re-evaluate in clinic. # tremor # anxiety # depression PLAN: Patient Instructions Plan: -continue to focus on being physically/socially active, engaging in brain games, healthy diet. -continuing to work with primary care provider regarding mood/anxiety concerns -start propranolol 10 mg twice daily for essential tremor -follow up with me in 6-8 weeks in clinic regarding tremor The patient was instructed to contact me if she has any questions, concerns or problems prior to the next clinic visit. Hailey Glover CNP Neurology [facility] Fellow [facility] ANALYST HE[employer] documented in this encounter Plan of Treatment Upcoming Encounters Date Type Department Care Team (Late st Contact Info) Description 02/23/2024 1:00 PM PROGRAMMER ANALYST HEALTH IT Telemedicine [facility] [address] [place] [phone] Lupe Graf PA-C [address] [place], [place] [phone] 02/24/2024 2:00 PM PROGRAMMER ANALYST HEALTH IT Telemedicine [facility] [address] [place] [address] Angela Tinajero, PharmD [address] [place] [address] documented as of this encounter Visit Diagnoses Diagnosis Tremor- Primary Abnormal involuntary movements Anxiety (HRC) Anxiety state, unspecified Depression, unspecified depression type documented in this encounter Care Teams Slab Inspector Relationship Specialty Start Date End Date Lupe Graf PA-C [address] [place] [address] PCP - General Physician Concrete Polisher 12/05/14 documented as of this encounter
--- OUTSIDE RECORDS SUMMARY | 2024-02-18 16:50 | XMS_ITS | Encounter Summary ---
Author Organization [employer] Address [address], [place] [address] Care Team Providers Care Needle Grader Name Role Phone Lupe Graf PA-C Primary Care Provider [phone] Encounter Details Date Type Department Care Team (Late Contact Info) Description 07/27/2018 Correspondence [facility] [address] [place] [address] Bill Lund PA-C [address] [place] [address] FMLA Social History Tobacco Use Types Packs/Day [...] st Contact Info) Description 02/23/2024 1:00 PM SHOE TURNER Telemedicine [facility] [address] [place] [address] Lupe Graf PA-C [address] [place], [place] [phone] 02/24/2024 2:00 PM SHOE TURNER Telemedicine [facility] [address] [place] [address] Angela Tinajero, PharmD [address] [place], [place] [phone] documented as of this encounter Visit Diagnoses Not on filedocumented in this encounter Care Teams Needle Grader Relationship Specialty Start Date End Date Lupe Graf PA-C [address] [place] [address] PCP - General Physician Communications Media Professor 12/05/14 documented as of this encounter
--- OUTSIDE RECORDS SUMMARY | 2024-02-18 16:50 | XMS_ITS | Encounter Summary ---
Author Organization [employer] Address [address], [place] [address] Care Team Providers Care Profile Saw Operator Name Role Phone Lupe Graf PA-C Primary Care Provider [phone] [phone] Encounter Details Date Type Department Care Team (Late Contact Info) Description 06/14/2017 Correspondence None Inactive, Provider PAP EQUIPMENT PICK-UP TICKET Social History Tobacco Use Types Packs/Day Years [...] Upcoming Encounters Date Type Department Care Team ([facility] Contact Info) Description 02/23/2024 1:00 PM [facility] Telemedicine [facility] [address] [place] [phone] Lupe Graf PA-C [address] [place] [address] 02/24/2024 2:00 PM [facility] Telemedicine [facility] [address] [place], [place] [phone] Angela Tinajero PharmD [address] [place] [address] documented as of this encounter Visit Diagnoses Not on filedocumented in this encounter Care Teams Profile Saw Operator Relationship Specialty Start Date End Date Lupe Graf PA-C [address] [place] [address] PCP - General Physician Rug Sample Beveler 12/05/14 documented as of this encounter
--- OUTSIDE RECORDS SUMMARY | 2024-02-18 16:50 | XMS_ITS | Encounter Summary ---
Author Organization [facility] Address [address] [place] [address] Care Team Providers Care Injection Specialist Name Role Phone Lupe Graf PA-C Primary Care Provider [phone] Reason for Visit * Reason Comments VISION, PROBLEM Encounter Details Date Type Department Care Team (Late st Contact Info) Description 12/28/2020 Nurse Triage [facility] [address] [place], [place] [address] Lupe Graf PA-C [address] [place] [address] VISION, PROBLEM Social History Tobacco Use Types Packs/Day Years [...] of Binge Drinking Not on file 01/07 Sex and Gender Information Value Date Recorded Sex Assigned at Not on file Gender Identity Not on file Sexual Orientation Not on file documented as of this encounter Nursing Notes * Afia Claire - 12/30/2020 9:30 AM CST She was seen yesterday at [facility]. This can be closed out. Afia Claire 12/30/2020, 9:31 AM STICS/SHIPPER * Kristin Sanchez - 12/30/2020 8:50 AM CST Does this patient still need to be seen and if so when and where? STICS/SHIPPER * Yuki Larsen RN - 12/28/2020 4:30 PM CST Reason for Disposition ??? [1] Blurred vision or visual changes AND [2] present now AND [3] sudden onset or new (e.g., minutes, hours, days) (Exception: seeing floaters / black specks OR previously diagnosed migraine headaches with same symptoms) New Floaters and new flashing light,like a lightening bolt at right side of right eye Answer Assessment - Initial Assessment Questions 1. DESCRIPTION: What is the vision loss like? Describe it for me. (e.g., complete vision loss, blurred vision, double vision, floaters, etc.) Floaters moving around and with blinking or looking to either side gets flashes of Light, happens more often if I move my eyes around, (only in right eye 2. LOCATION: One or both eyes? If one, ask: Which eye? *right eye 3. SEVERITY: Can you see anything? If Yes, ask: What can you see? (e.g., fine print) Seems like vision i right eye is not as good as normal can see small print and far away 4. ONSET: When did this begin? Did it start suddenly or has this been gradual? First floater stared at noon today and the flashing or lightening strikes started around 2:30 PM -3PM, today 5. PATTERN: Does this come and go, or has it been constant since it started? Constant floater and intermittent lightening bolt at peripheral vision 6. PAIN: Is there any pain in your eye(s)? (Scale 1-10; or mild, moderate, severe) deniess any eye pain, however felt eye strain with trying to play a game on her phone, 7. CONTACTS-GLASSES: Do you wear contacts or glasses? Just glasses 8. CAUSE: What do you think is causing this visual problem? Would like to see eye doctor tomorrow wonders if she should be sen today 9. OTHER SYMPTOMS: Do you have any other symptoms? (e.g., confusion, headache, arm or leg weakness, speech problems) None of the above 10. : Is there any chance you are ? When was your last menstrual period? n/a Protocols used: VISION LOSS OR [id number] STICS/SHIPPER * Yuki Larsen RN - 12/28/2020 4:20 PM CST Patient/chronic care nurse request: Appointment Work In for Vision change, appt recommended by on-call Baseball Pitcher Dr Dahl Specific Request: Clinic appt needed for 12/29/[address] Dahl for new Floaters and flashing light, in right eye, as of noon on 12/28/20. Clinician route to Flag for care team/Care team pool as patient is expecting a call back. Verified patient identity: Yes Situation/Background (brief explanation of current symptoms/situation): Pt is Type 2 Diabetic and today for the first time noticed a Floater, smaller than a pencil eraser, with smaller floaters around it and about translucent other floater that move with it. Now when I move my eyes to the right or to the left or when I blink, I get a shooting or flash of Light like a lightening bolt that goes down on the right side peripheral vision of right eye/visual field. Denies any eye pain BG is well controlled and wnl's today. Pt would like to make appt with an Baseball Pitcher for tomorrow, but would like to know if it is recommended to be seen tonight. Reviewed with patient pertinent medical history (as it related to the call):yes pt is Type 2 Diabetes. In June 2020 Had Ketoacidosis with and following discharge I had blurred vision that resolved itself within a couple weeks Reviewed with patient pertinent medications (as they relate to call): Yes Pt is on Insulin Reviewed with patient pertinent allergies (as they relate to call): yes Penicillins, Aspirin, and Morphine STICS/SHIPPER documented in this encounter Plan of Treatment Upcoming Encounters Date Type Department Care Team (Late st Contact Info) Description 02/23/2024 1:00 PM LOGISTICS/SHIPPER Telemedicine [facility] [address] [place] [phone] Lupe Graf PA-C [address] [place], [place] [phone] 02/24/2024 2:00 PM LOGISTICS/SHIPPER Telemedicine [facility] [address] [place], [place] [phone] Angela Tinajero PharmD [address] [place], [place] [phone] documented as of this encounter Visit Diagnoses Not on filedocumented in this encounter Care Teams Injection Specialist Relationship Specialty Start Date End Date Lupe Graf PA-C [address] [place] [address] PCP - General Physician Type Soldering Machine Tender 12/05/14 documented as of this encounter
--- OUTSIDE RECORDS SUMMARY | 2024-02-18 16:50 | XMS_ITS | Encounter Summary ---
Author Organization [employer] Address [address], [place] [address] Care Team Providers Care Brass Polisher Name Role Phone Lupe Graf PA-C Primary Care Provider [phone] Encounter Details Date Type Department Care Team (Late Contact Info) Description 02/21/2018 Emergency Room External to [facility] Social History Tobacco Use Types Packs/Day Years [...] (Late Contact Info) Description 02/23/2024 1:00 PM RADIO MECHANIC Telemedicine [facility] [address] [place] [phone] Lupe Graf PA-C [address] [place], [place] [phone] 02/24/2024 2:00 PM RADIO MECHANIC Telemedicine [facility] [address] [place], [place] [phone] Angela Tinajero PharmD [address] [place], [place] [phone] documented as of this encounter Visit Diagnoses Not on filedocumented in this encounter Care Teams Brass Polisher Relationship Specialty Start Date End Date Lupe Graf PA-C [address] [place] [address] PCP - General Physician Department Chairperson 12/05/14 documented as of this encounter
--- OUTSIDE RECORDS SUMMARY | 2024-02-18 16:50 | XMS_ITS | Encounter Summary ---
Author Organization [employer] Address [address], [place] [address] Care Team Providers Care Oracle Sql Developer Name Role Phone Lupe Graf PA-C Primary Care Provider [phone] Encounter Details Date Type Department Care Team (Late Contact Info) Description 05/25/2017 Consent for Procedure/Treatme nt [facility] INFORMED CONSENT FOR SLEEP/AUDIO/VIDEO Social History Tobacco Use Types Packs/Day Years [...] (Late Contact Info) Description 02/23/2024 1:00 PM FACILITY SERVICE ASSOCIATE Telemedicine [facility] [address] [place] [phone] Lupe Graf PA-C [id number] [place] [phone] 02/24/2024 2:00 PM FACILITY SERVICE ASSOCIATE Telemedicine [facility] [address] [place], [place] [phone] Angela Tinajero, PharmD [address] [place], [place] [phone] documented as of this encounter Visit Diagnoses Not on filedocumented in this encounter Care Teams Oracle Sql Developer Relationship Specialty Start Date End Date Lupe Graf PA-C [address] [place] [address] PCP - General Physician Director Retail Brand Development 12/05/14 documented as of this encounter
--- OUTSIDE RECORDS SUMMARY | 2024-02-18 16:50 | XMS_ITS | Encounter Summary ---
Author Organization [employer] Address [address], [place] [address] Care Team Providers Care Drafter Detail Name Role Phone Lupe Graf PA-C Primary Care Provider [phone] Encounter Details Date Type Department Care Team (Late st Contact Info) Description 05/22/2016 Refill Order [facility] [address] [place], [place] [phone] Lupe Graf PA-C [address] [place] [address] Social History Tobacco Use Types Packs/Day Years Used Date Smoking Tobacco: Never Smokeless Tobacco: Never Sex and Gender Information Value Date Recorded Sex Assigned at Not on file Gender Identity Not on file Sexual Orientation Not on file documented as of this encounter Nursing Notes * Chad Brunson CMA - 05/24/2016 3:26 PM CDT Letter sent to pt. 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 Telemedicine [facility] [address] [place] [phone] Lupe Graf PA-C [address] [place] [address] 02/24/2024 2:00 PM [facility] [address] [place], [place] [phone] Angela Tinajero, PharmD [address] [place] [address] documented as of this encounter Results * (ABNORMAL) Hgb A1c (12/02/2016 4:13 PM CDT) Hgb A1c 7.4(H) 4.3 - 5.6 % [facility] Comment: See (NOTE) For patients not previously diagnosed with diabetes: 5.7-6.4%: Increased risk for diabetes (prediabetic) 6.5% and greater: Diagnostic for diabetes For diabetic patients: <8.0%: Goal of therapy for ages 18-75 - physicians may recommend a higher or lower goal for specific individuals 12/02/2016 4:13 PM CDT 12/02/2016 4:15 PM CDT Narrative [facility] - 12/02/2016 7:01 PM CDT Performed at [facility], [address] [place] [address] Lupe Graf PA-C LAB_1 [facility] [phone] documented in this encounter Visit Diagnoses Diagnosis Encounter for long-term (current) use of medications- Primary Encounter for long-term (current) use of other medications Encounter for long-term (current) use of medications Encounter for long-term (current) use of other medications Controlled type 2 diabetes mellitus without complication, with long-term current use of insulin ([facility]) documented in this encounter Care Teams Drafter Detail Relationship Specialty Start Date End Date Lupe Graf PA-C [address] [place] [address] PCP - General Physician Stack Attendant 12/05/14 documented as of this encounter
[2024-02-18 16:56] VITALS: BP 173/89; PULSE 90; RESP 18; TEMP 36.9; O2SAT 100; BMI 22.2
--- NOTE | 2024-02-18 18:44 | ED.GENADULT ---
HPI - General Adult General Date Seen: 02/18/24 Chief complaint: Back Injury/Pain Stated complaint: Fall, back pain Time Seen by Provider: 02/18/24 18:42 History of Present Illness HPI narrative: 63-year-old female presenting to the ER today for injuries after she fell while working with her horse. She was apparently working with her or and fell from a standing position directly onto her back. She is having pain in her midline lower back. Also pain in her ribs with deep breathing. She can feel a bump on her spine where she fell. She has been ambulatory but is feeling shaky. She is not anticoagulated. She was working with her horse this afternoon. The horse was on the ground she was not riding it. She fell over backwards and landed directly on her back. Ever since then she has been having pain directly in the midline of her low back and her upper lumbar spine. The pain is severe and hurts when she moves and hurts when she breathes. She feels as though there is a bump for something there ever since she fell. She is not having any numbness or weakness in her legs. She was able to get up and walk but does feel shaky. Not much anterior pain. When she breathes deeply the pain in her back gets worse and radiates around to the ribs and sides of her torso. She did not hit her head. No loss of consciousness. No headache. No neck pain. No pain in her shoulders or upper extremities. Related Data Home Medications ?Medication ?Instructions ?Recorded ?Confirmed atorvastatin 20 mg tablet 20 mg PO DAILY 07/04/23 02/18/24 bupropion HCl 300 mg 24 hr tablet, 300 mg PO DAILY 07/04/23 02/18/24 extended release cyanocobalamin (vitamin B-12) 1,000 mcg IM 07/04/23 1,000 mcg/mL injection solution losartan 50 mg tablet 50 mg PO DAILY 07/04/23 07/04/23 metformin 500 mg tablet,extended 1,000 mg PO BID 07/04/23 02/18/24 release 24 hr semaglutide 2 mg/dose (8 mg/3 mL) mg subcut 07/04/23 subcutaneous pen injector (Ozempic) sertraline 100 mg tablet 150 mg PO 07/04/23 trazodone 100 mg tablet 100 mg PO QPM 07/04/23 07/04/23 Allergies Allergy/AdvReac Type Severity Reaction Status Date / Time morphine Allergy Unknown Verified 02/18/24 17:03 Penicillins Allergy Unknown Verified 02/18/24 17:03 [facility] Social History Smoking Status: Never smoker Do you use any of these nicotine containing products: None Second hand tobacco smoke exposure: No How often do you have a drink containing alcohol: monthly or less AUDIT-C Alcohol total score: 1 Non-prescribed substance use: denies use service: No Exam Narrative: Exam Narrative: Primary Survey: A- patent. Speaking clearly. Phonation normal. No stridor. B- breathing easily. Lung sounds clear and equal. Oxygen saturation normal on room air C- no active bleeding. Blood pressure stable. Symmetric pulses and cap refill in 4 extremities. D- alert and oriented x3. GCS 15. Very uncomfortable. Has midline back pain with either swelling or apparent step-off of the lumbar spine. No focal deficits. I did not have the patient ambulate but she was ambulatory coming in to triage. Constitutional: Appears well-developed and well-nourished. Alert. Polite but very uncomfortable. Shaking due to pain. HENT: Head: Atraumatic. No depressed skull fracture, Raccoon Eyes, Altamirano's sign, or hemotympanum. Face normal. TMs normal Nose: Nose normal. Mouth/Throat: Oral mucosa is clear and moist. no trismus. Pharynx normal. Tonsils symmetric. No tonsillar enlargement, erythema, or exudate. Eyes: Conjunctivae normal. EOM normal. Pupils equal, round, and reactive to light. No scleral icterus. Neck: Normal range of motion. Neck supple. No tracheal deviation present. Cardiovascular: Normal rate, regular rhythm. No gallop. No friction rub. No murmur heard. Symmetric radial artery pulses Pulmonary/Chest: Effort normal. No stridor. No respiratory distress. No wheezes. No rales. No rhonchi . No tenderness. Abdominal: Soft. Bowel sounds normal. No distension. No mass. No tenderness. No rebound. No guarding. Musculoskeletal: Severe tenderness with the parents swelling in the midline of her upper lumbar spine. No definite bony crepitus but concerning for possible step-off. RUE: Normal range of motion. No tenderness. No deformity LUE: Normal range of motion. No tenderness. No deformity RLE: Normal range of motion. No edema. No tenderness. No deformity LLE: Normal range of motion. No edema. No tenderness. No deformity Neurological: Alert and oriented to person, place, and time. Normal strength. CN II-VII intact. No sensory deficit. GCS eye subscore is 4. GCS verbal subscore is 5. GCS motor subscore is 6. Normal coordination Skin: Skin is warm and dry. No rash noted. No pallor. Normal capillary refill. Psychiatric: Normal mood. Normal affect. Const: Vital Signs, click to edit/add: Vital Signs - 24 hr 02/18/24 16:56 02/18/24 19:48 02/18/24 20:00 Temperature 98.4 F Pulse Rate 92 Pulse Rate [Right Pulse Oximeter] 90 94 Respiratory Rate 18 16 Blood Pressure [Ri ght Upper Arm] 173/89 H 197/82 H Pulse Oximetry 100 97 99 Oxygen Delivery Me thod Room Air 02/18/24 20:00 02/18/24 20:15 Temperature Pulse Rate 90 89 Pulse Rate [Right Pulse Oximeter] Respiratory Rate Blood Pressure [Ri ght Upper Arm] Pulse Oximetry 93 96 Oxygen Delivery Me thod Course Vital Signs Vital signs: Initial Vital Signs Temperature 98.4 F 02/18/24 16:56 Temperature Source Temporal Artery Scan 02/18/24 16:56 Pulse Rate 90 02/18/24 16:56 Pulse Rhythm Regular 02/18/24 16:56 Respiratory Rate 18 02/18/24 16:56 Blood Pressure 173/89 H 02/18/24 16:56 Blood Pressure Mean 117 H 02/18/24 16:56 Blood Pressure Position Sitting 02/18/24 16:56 Pulse Oximetry 100 02/18/24 16:56 Oxygen Delivery Method Room Air 02/18/24 16:56 Vital Signs Temperature 98.4 F 02/18/24 16:56 Pulse Rate 90 02/18/24 16:56 Respiratory Rate 18 02/18/24 16:56 Blood Pressure 173/89 H 02/18/24 16:56 Pulse Oximetry 100 02/18/24 16:56 Oxygen Delivery Method Room Air 02/18/24 16:56 Temperature 98.4 F 02/18/24 16:56 Pulse Rate 89 02/18/24 20:15 Respiratory Rate 16 02/18/24 20:00 Blood Pressure 197/82 H 02/18/24 20:00 Pulse Oximetry 96 02/18/24 20:15 Oxygen Delivery Method Room Air 02/18/24 16:56 Medications Administered Medications: Discontinued Medications Generic Name Dose Route Start Last Admin Trade Name Joe PRN Reason Stop Dose Admin Hydromorphone HCl 1 mg 02/18/24 18:53 02/18/24 19:09 Hydromorphone 0.5 Mg/0.5 Ml Inj IVP 02/18/24 18:54 1 mg ONCE ONE Administration Ondansetron HCl 4 mg 02/18/24 18:53 02/18/24 19:08 Ondansetron 2 Mg/Ml Inj IVP 02/18/24 18:54 4 mg ONCE ONE Administration Oxycodone/Acetaminophen 1 tab 02/18/24 20:40 02/18/24 20:44 Oxycodone/Apap 5-325 Tablet PO 02/18/24 20:41 1 tab ONCE ONE Administration Medical Decision Making [facility] Narrative Medical decision making narrative: Pleasant 63-year-old female presenting to the ER today with a ground level fall leading to a back injury. The fall occurred while she was tending her horse but she was not riding her horse and did not fall from the horse She has severe pain affecting her upper lumbar spine/lower thoracic spine with apparent swelling or a possible step-off there. CT scan of the patient's C and T and L-spine reveal evidence for a lumbar 1 compression fracture but no evidence for any subluxation or unstable fracture of the spine. She is neurologically intact in both legs. CT scan of her chest/M pelvis shows no evidence for rib fracture, intrathoracic injury, intra-abdominal injury. 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 She is noted to be hypertensive which I think is related to her severe pain. She required IV Dilaudid here in the ER which improved her pain talk to the point where it is tolerable and she is able to discharge home She passed ambulation trial here in the ER. She remains neurologically intact She will need close outpatient follow-up with primary care for re-evaluation. Typically lumbar compression fractures with 25% height loss such as this do not require any operative intervention or neuro surgical treatment. However likely will have a lot of pain with recovery. Discussed plans for managing the recovery. Note for work provided. Prescriptions through [facility] for Percocet and Flexeril and Zofran provided. Sedation precautions reviewed. Opiate precautions reviewed. Questions answered. Precautions for return to the ER reviewed. Lab Data Labs: Lab Results 02/18/24 Range/Units 19:00 WBC 9.47 (4.50-11.00) K/uL RBC 4.55 (4.00-5.20) m/uL Hgb 12.9 (12.0-16.0) gm/dL Hct 38.3 (33.0-51.0) % MCV 84 (80-100) fL MCH 28 (26-34) pg MCHC 34 (32-36) gm/dL RDW Coeff of Gael 11.9 (11.5-15.5) % Plt Count 208 (140-440) K/uL Neut % (Auto) 74.3 H (42.0-72.0) % Lymph % (Auto) 19.1 L (20-44) % [place] % (Auto) 5.9 (0.0-11.0) % Eos % (Auto) 0.2 (0.0-7.0) % Baso % (Auto) 0.1 (0.0-3.0) % Neut # (Auto) 7.00 (1.7-7.0) K/uL Lymph # (Auto) 1.80 (0.90-2.90) K/uL [place] # (Auto) 0.60 (0.00-0.90) K/UL Eos # (Auto) 0.02 (0.00-0.50) K/uL Baso # (Auto) 0.01 (0.00-0.30) K/uL Abs Immat Gran (auto) 0.04 (0.00-0.30) K/uL Imm/Tot Granulo (auto) 0.4 % INR 0.98 (0.91-1.10) Sodium 136 (135-149) mmol/L Potassium 3.6 (3.6-5.1) mmol/L Chloride 104 (96-114) mmol/L Carbon Dioxide 25 (20-32) mmol/L Anion Gap 7 (7-15) mEq/L BUN 11 (7-30) mg/dL Creatinine 0.5 (0.5-1.5) mg/dL Estimated Creat Clear 61.74 Estimated GFR 107 ml/min Glucose 144 H (60-115) mg/dL Lactate 0.9 (0.5-1.9) mmol/L Calcium 9.2 (8.4-10.6) mg/dL Total Bilirubin 0.6 (0.1-1.5) mg/dL AST 36 H (12-35) U/L ALT 60 H (4-35) U/L Alkaline Phosphatase 29 L (40-150) U/L Total Protein 6.3 (6.0-8.3) g/dL Albumin 4.0 (3.3-5.0) g/dL POC Creatinine 0.6 (0.6-1.3) mg/dl Imaging Data CT scan - head: Attestation: I have reviewed the pertinent imaging results. Radiologist's impression: Impression: No acute abnormality appreciated. CT C spine: Attestation: I have reviewed the pertinent imaging results. Radiologist's impression: Impression: No acute abnormality appreciated. CT T spine: Attestation: I have reviewed the pertinent imaging results. Radiologist's impression: IMPRESSION: No acute fracture or trauma-related malalignment. CT L spine: Attestation: I have reviewed the pertinent imaging results. Radiologist's impression: IMPRESSION: Age-indeterminate, but likely acute, compression fracture deformity of the L1 vertebral body with less than 25 percent vertebral body height loss. No retropulsed fracture fragments. CT Chest/Ab/Pelvis: Attestation: I have reviewed the pertinent imaging results. My impression: Suspect L1 compression fracture. Looks like there is a little bit of overlying soft tissue edema but I do not see any obvious hematoma. Radiologist's impression: Abdomen/pelvis: Status post cholecystectomy with expected biliary ductal dilatation. The liver, spleen, pancreas, adrenal glands, kidneys, ureters, and bladder are without evidence of acute traumatic injury. Nonobstructing 1 centimeter stone at the lower pole of the left kidney. Malrotated right kidney. The uterus and bilateral adnexa are unremarkable in appearance. Bilateral tubal occlusion devices. 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 There is no evidence of bowel obstruction, inflammation, or acute traumatic injury. The appendix is normal. Moderate stool burden throughout the colon. No free fluid or free air. No abscess. No abdominopelvic lymphadenopathy. The vasculature is within normal limits in appearance with mild calcific atherosclerosis. Soft tissue/musculoskeletal: Soft tissues are without acute abnormality. Midline ventral abdominal wall hernia containing a small segment of colon without evidence of obstruction or inflammation. Age-indeterminate, but likely acute compression fracture deformity of the L1 vertebral body with less than 25 percent vertebral body height loss. No retropulsed fracture fragments. No additional acute, displaced fractures or malalignment. No significant spondylitic changes of the spine. No suspicious osseous lesions. Impression: 1. Age-indeterminate, but likely acute compression fracture deformity of the L1 vertebral body with less than 25 percent vertebral body height loss. No retropulsed fracture fragments. 2. No additional CT findings of acute traumatic injury involving the chest, abdomen, or pelvis. 3. Incidental findings as detailed above. Discharge Plan Discharge Clinical Impression: Closed compression fracture of L1 vertebra Patient Disposition: Home, Self-Care Condition: Stable Instructions: Vertebral Compression Fracture (ED) Additional Instructions: As we discussed, you have a compression fracture of her lumbar 1 vertebrae. At this point the fracture is not serious enough to require surgery. However the fracture can be very painful. While your healing the fracture avoid activities that could lead to further injury such as horseback riding, ladders, winter sports. Avoid activities that require a lot of bending and lifting. It is important to do light activity and moving and walking to avoid stiffness, says weakness, and immobility. However you may need extra time to rest. Your case to go back to work when your pain is tolerable sitting up. However you may need some time off work to recover. Use the prescription pain killer, Percocet, as needed. Be careful because Percocet is an opiate. It can cause dizziness, drowsiness, constipation, as well as itching. All opiates can be addictive. Please follow-up with your regular doctor for recheck within 1 week. Remember, if you have any worsening symptoms or any concerns, please come back to the ER right away. Prescriptions: No Action atorvastatin 20 mg tablet 20 mg PO DAILY sertraline 100 mg tablet 150 mg PO trazodone 100 mg tablet 100 mg PO QPM cyanocobalamin (vitamin B-12) 1,000 mcg/mL solution 1,000 mcg IM bupropion HCl 300 mg tablet extended release 24 hr 300 mg PO DAILY losartan 50 mg tablet 50 mg PO DAILY metformin 500 mg tablet extended release 24 hr 1,000 mg PO BID Ozempic 2 mg/dose (8 mg/3 mL) pen injector subcut Follow Up/Referrals: Provider,Not a Local [Non-Staff] - Stand Alone Forms: [employer] Info Instructions
--- NOTE | 2024-02-18 18:53 | CRLHL7_ITS ---
For Patients: As a result of the Century Cures Act, medical imaging exams and procedure reports are released immediately into your electronic medical record. You may view this report before your referring provider. If you have questions, please contact your health care provider. Indication: Ground level fall, back pain, step-off, hurts to breath Technique: CT chest/abdomen/pelvis with IV contrast Comparison: None Findings: Chest: No thyroid nodules. No thoracic lymphadenopathy. The heart is within normal limits in size. Small pericardial effusion. The thoracic aorta and pulmonary artery are normal in caliber. No focal airspace consolidation, pleural effusion, or pneumothorax. No suspicious pulmonary nodules or masses. The airways are clear. Abdomen/pelvis: Status post cholecystectomy with expected biliary ductal dilatation. The liver, spleen, pancreas, adrenal glands, kidneys, ureters, and bladder are without evidence of acute traumatic injury. Nonobstructing 1 centimeter stone at the lower pole of the left kidney. Malrotated right kidney. The uterus and bilateral adnexa are unremarkable in appearance. Bilateral tubal occlusion devices. 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 There is no evidence of bowel obstruction, inflammation, or acute traumatic injury. The appendix is normal. Moderate stool burden throughout the colon. No free fluid or free air. No abscess. No abdominopelvic lymphadenopathy. The vasculature is within normal limits in appearance with mild calcific atherosclerosis. Soft tissue/musculoskeletal: Soft tissues are without acute abnormality. Midline ventral abdominal wall hernia containing a small segment of colon without evidence of obstruction or inflammation. Age-indeterminate, but likely acute compression fracture deformity of the L1 vertebral body with less than 25 percent vertebral body height loss. No retropulsed fracture fragments. No additional acute, displaced fractures or malalignment. No significant spondylitic changes of the spine. No suspicious osseous lesions. Impression: 1. Age-indeterminate, but likely acute compression fracture deformity of the L1 vertebral body with less than 25 percent vertebral body height loss. No retropulsed fracture fragments. 2. No additional CT findings of acute traumatic injury involving the chest, abdomen, or pelvis. 3. Incidental findings as detailed above. Please note that all CT scans at this facility use dose modulation, iterative reconstruction, and/or weight-based dosing when appropriate to reduce radiation dose to as low as reasonably achievable. Dictated by Ger Skaggs MD @ 02/18/2024 8:10:13 PM (Electronically Signed)
--- NOTE | 2024-02-18 18:53 | CRLHL7_ITS ---
For Patients: As a result of the Century Cures Act, medical imaging exams and procedure reports are released immediately into your electronic medical record. You may view this report before your referring provider. If you have questions, please contact your health care provider. INDICATION: COMPARISON: None TECHNIQUE: CT of the spine without contrast FINDINGS: Age-indeterminate, but likely acute compression fracture deformity of the L1 vertebral body with less than 25 percent vertebral body height loss. No retropulsed fracture fragments. No additional fractures or malalignment. The remaining vertebral body heights are maintained. No significant intervertebral disc height loss. No acute high-grade spinal canal or neuroforaminal stenosis. Multilevel facet arthropathy. Degenerative changes of the bilateral sacroiliac joints. The soft tissues are without acute abnormality. Please see separate same day CT chest/abdomen/pelvis for description of intra-abdominal and intrapelvic findings. IMPRESSION: Age-indeterminate, but likely acute, compression fracture deformity of the L1 vertebral body with less than 25 percent vertebral body height loss. No retropulsed fracture fragments. Please note that all CT scans at this facility use dose modulation, iterative reconstruction, and/or weight-based dosing when appropriate to reduce radiation dose to as low as reasonably achievable. Dictated by Ger Skaggs MD @ 02/18/2024 8:17:05 PM (Electronically Signed)
--- NOTE | 2024-02-18 18:53 | CRLHL7_ITS ---
For Patients: As a result of the Century Cures Act, medical imaging exams and procedure reports are released immediately into your electronic medical record. You may view this report before your referring provider. If you have questions, please contact your health care provider. INDICATION: Ground level fall, back pain, step-off, hurts to breath,low back pain COMPARISON: None TECHNIQUE: CT of the thoracic spine without contrast FINDINGS: No acute fracture or malalignment. No listhesis. Vertebral body heights are maintained. Intervertebral disc spaces are maintained. No acute high-grade spinal canal or neuroforaminal stenosis. The soft tissues are without acute abnormality. Please see separate same day CT chest/abdomen/pelvis for description of intrathoracic and intra-abdominal findings. IMPRESSION: No acute fracture or trauma-related malalignment. Please note that all CT scans at this facility use dose modulation, iterative reconstruction, and/or weight-based dosing when appropriate to reduce radiation dose to as low as reasonably achievable. Dictated by Ger Skaggs MD @ 02/18/2024 8:13:09 PM (Electronically Signed)
--- NOTE | 2024-02-18 19:02 | CRLHL7_ITS ---
For Patients: As a result of the Century Cures Act, medical imaging exams and procedure reports are released immediately into your electronic medical record. You may view this report before your referring provider. If you have questions, please contact your health care provider. Indication: Ground level fall, back pain, hurts to breathe, step-off Technique: Noncontrast CT through the cervical spine with multiplanar reformats Comparison: None Findings: Alignment: Mild leftward curvature. No acute malalignment appreciated. Bones: No acute fracture. No lytic or blastic lesion. Cervical levels: No acute abnormality appreciated. Mild spondylosis. Soft tissues: No acute abnormality appreciated. Impression: No acute abnormality appreciated. Please note that all CT scans at this facility use dose modulation, iterative reconstruction, and/or weight-based dosing when appropriate to reduce radiation dose to as low as reasonably achievable. Dictated by Joe Queen MD @ 02/18/2024 8:02:31 PM (Electronically Signed)
--- NOTE | 2024-02-18 19:03 | CRLHL7_ITS ---
For Patients: As a result of the Century Cures Act, medical imaging exams and procedure reports are released immediately into your electronic medical record. You may view this report before your referring provider. If you have questions, please contact your health care provider. Indication: Ground level fall, back pain, step-off, hurts to breathe Technique: Noncontrast CT through the head with multiplanar reformats Comparison: None Findings: Brain: No acute hemorrhage. No acute infarct. No significant mass effect or midline shift. No gross evidence of a mass lesion or cerebral edema. Hypodensity inferior left putamen. Mild chronic microvascular ischemic disease. Ventricles: No acute abnormality appreciated. Orbits, sinuses, mastoids: No acute abnormality appreciated. Calvarium and soft tissues: No acute abnormality appreciated. Impression: No acute abnormality appreciated. Please note that all CT scans at this facility use dose modulation, iterative reconstruction, and/or weight-based dosing when appropriate to reduce radiation dose to as low as reasonably achievable. Dictated by Joe Queen MD @ 02/18/2024 8:03:49 PM (Electronically Signed)
--- OUTSIDE RECORDS SUMMARY | 2024-02-18 19:06 | XMS_ITS | Clinical Summary ---
Author Organization [employer] [facility] Address [place], [place] [address] Care Team Providers Care Boiler Reliner Name Role Phone Lupe Graf Primary Care Provider [phone] Allergies Active Allergy Reactions Criticality Noted Date [...] dm 100 3 07/16/19 09 Active Insulin [place], Disposable, (OREN PEN NEEDLE) 32 x 5/32 [...] on file Legal Sex Female 5:31 AM FOOD OPERATIONS MANAGER Gender Identity Not on file Sexual Orientation Not on file Obstetrics History Last Filed Vital Signs Vital Sign Reading Time Taken Comments Blood Pressure 122/70 02/09/2022 3:44 PM FOOD OPERATIONS MANAGER Pulse 80 02/09/2022 3:44 PM FOOD OPERATIONS MANAGER Temperature 36.3 C (97.4 F) 03/31/2019 8:30 AM FOOD OPERATIONS MANAGER Respiratory Rate 16 03/31/2019 8:30 AM FOOD OPERATIONS MANAGER Oxygen Saturation 96% 02/09/2022 3:44 PM FOOD OPERATIONS MANAGER Inhaled Oxygen Concentration - - Weight 91.4 kg (201 lb 6.4 oz) 02/09/2022 3:44 P M FOOD OPERATIONS MANAGER Height 177.8 cm (5' 10) 02/09/2022 3:44 PM FOOD OPERATIONS MANAGER Body Mass Index 28.9 02/09/2022 3:44 PM FOOD OPERATIONS MANAGER Plan of Treatment Health Maintenance Due Date [...] 07/21/2018, 04/20/2017 Medical Devices Implanted Type Area Rotary Drum Dyer Device Identifier Shelf Expiration Date Model / Serial / Lot Essure [id number] Implanted:Qty: 1 on 05/29/2009 at [facility] Right: Fallopian Tube [employer] [id number] / / [id number] System Control Permanentpressure - [id number] Implanted:Qty: 1 on 05/29/2009 at [facility] Left: Fallopian Tube [employer] 12/09/2011 [id number] / / [id number] Procedures Procedure Name Priority Date/Time Associated Diagnosis Comments LIPID PANEL W REFLEX MEASURED LDL Routine 03/06/2013 9:14 AM FOOD OPERATIONS MANAGER DIABETES TYPE II WITHOUT COMPLICATIONS OR UNSPECIFIED ANTI HIV 1/2 Routine 12/04/2012 10:38 AM CDT Screening for STD (sexually transmitted disease) XR MAMMO BILAT SCREEN FFDM (IA) Routine 08/07/2012 11:37 AM CDT Other screening mammogram APPLE SOLUTIONS CONSULTANT THIN PREP PAP SCREEN IMAGED Routine 07/30/2011 9:22 AM CDT Screening for malignant neoplasm of the cervix from Last 3 Months or Most Recently Relevant to Health Maintenance Results * LIPID PANEL W REFLEX MEASURED LDL (03/06/2013 9:14 AM FOOD OPERATIONS MANAGER) CHOLESTEROL,TOTA L 137 100 - 199 mg/dL [facility] TRIGLYCERIDES 140 <150 mg/dL [facility] HDL CHOLESTEROL 50 >40 mg/dL [facility] CHOL/HDL RATIO 2.74 <4.50 [facility] NON-HDL CHOLESTEROL 87 Undefined mg/dL [facility] LDL CHOLESTEROL 59 <131 mg/dL [facility] PATIENT STATUS Non-Fast ing [facility] Blood specimen (specimen) BLOOD SPECIMEN / Unknown 03/06/2013 9:14 AM FOOD OPERATIONS MANAGER 03/06/2013 9:04 AM FOOD OPERATIONS MANAGER us Nadia Trujillo MD CHEMISTRY Final Result [facility] INTERNAL ZIP [id number] [place] [address] * ANTI HIV 1/2 (12/04/2012 10:38 AM CDT) ANTI HIV 1/2 Non-reacti ve [facility] Blood specimen (specimen) BLOOD SPECIMEN / Unknown 12/04/2012 10:38 AM CDT 12/04/2012 10:30 AM CDT us Nadia Trujillo MD SEND OUTS Final Result [facility] INTERNAL ZIP [id number] [address] [place] [address] * XR MAMMO BILAT SCREEN FFDM (08/07/2012 [...] Yes 08/06/11 [facility] 12/08/09 [facility] FINDINGS: Mammographically, the breast [...] of Computer-Aided Detection. COMPARISON FILM: Yes 08/06/11 [facility] 12/08/09 [facility] [...] Nadia Trujillo MD MAMMO Final Result * [employer] CONSULTANT THIN PREP PAP SCREEN IMAGED (07/30/2011 9:22 AM CDT) CYTOLOGY CYTOPATHOLOGY REPORT [facility] Status: Final Status [id number] CLINICAL INFORMATION Last Date of LMP :Ablation Last Pap Date :07/15/2008 Last Pap Result :NIL ABN [place]/Bx Past 5 YRS :None Hormone Usage :None Menstrual Status :Ablation [place]/Bx done today :No Additional Information :None given [...] malignant lesions. COLLECTED:07/30/11 ACCESSIONED: 07/30/11 SIGNED: 08/05/11 [facility] PAP [place] CODE NIL [facility] Tissue specimen (specimen) (Cervical/Vagina l) 07/30/2011 9:22 AM CDT 07/30/2011 9:21 AM CDT us Nadia Trujillo MD PATHOLOGY/CYTOLOGY Final Resul t [facility] INTERNAL ZIP [id number] [place] [id number] from Last 3 Months or Most Recently Relevant to Health Maintenance Insurance [facility] Advance Directives * Full Code (Latest Code Status on File) Date Activated Date Inactivated Comments 05/29/2009 11:05 AM 05/29/2009 6:15 PM Care Teams Boiler Reliner Relationship Specialty [place] [address] [place] [address] PCP - General Physician Rehab Rn 02/09/22
--- OUTSIDE RECORDS SUMMARY | 2024-02-18 19:06 | XMS_ITS | Encounter Summary ---
Author Organization [facility] Address [address], [place] [address] Care Team Providers Care Cod Clerk Name Role Phone Lupe Graf PA-C Primary Care Provider [phone] Encounter Details Date Type Department Care Team (Late st Contact Info) Description 01/03/2024 Procedure Visit [facility] Neuropsychology [address] [place] [address] Krystin Lui PsyD, JAMAAL [address] [place], [place] [id number] Social History Tobacco Use Types Packs/Day Years [...] a follow-up appointment with Hailey Glover, ANPR, SPORTS DOCTOR, on 01/26/2024 during which time neuropsychological test [...] appear an appointment was scheduled. She can [phone] to schedule an appointment. Ms. Pace indicated [...] re-evaluationcan be arranged. REFERRING CLINICIAN: Hailey Glover, LATHER APPRENTICE, SPORTS DOCTOR [address] / [place] [address] REASON FOR CONSULTATION: Neuropsychological evaluation to assess [...] seen in Neurology by Hailey Glover APRN, SPORTS DOCTOR. Per her note, Ms. Pace reported having [...] and bilateral upper extremities. Hailey Glover APRN, SPORTS DOCTOR, recommended lab work, an EMG to check [...] SOCIAL HISTORY: Ms. Pace was born in [place] and lived there until she was around the age of 4 or 5. She then moved to the [facility] to live with her mother. As noted above, Ms. Pace reported difficulties learning to read and indicated she was diagnosed with dyslexia. She said school was very challenging for her. Ms. Pace graduated high school. She said her mother told her she was not smart enough to go to [employer]. Ms. Pace works at [employer] in the [employer] department. She's worked at [employer] 10 to 11 years. She previously worked at [employer]. 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 [...] Inventory Ramos Depression Inventory - Second Edition Straughn Naming Test Brief Visuospatial Memory Test - Revised Clock Drawing Test Controlled Oral Word Association Test Rona-Goel Executive Functioning System, Selected subtests Miller Verbal Learning Test- Revised Dimitris-O Complex Figure Copy Glennie Making Test, Parts A and B Too Adult Intelligence Scale - Fourth Edition, Selected subtests Too Memory Scale - Fourth Edition, Selected subtests Wide Range Achievement Test -4, Selected subtests [place] Card Sorting Test - 64 Card Version Various freestanding and embedded measures of performance validity Thank you, Hailey Glover APRN, SPORTS DOCTOR, for involving me in the care of this patient. Please feel free to contact me if I can be of further assistance. Neurobehavioral status exam: 35 minutes. Test administration and scoring by rvda master certified rv technician: 177 minutes. Test evaluation services, including clinical integration, data interpretation, clinical decision making, treatment planning, and documentation: 165 minutes. Please note: This report was created using speech-recognition software and may contain unintended word-substitutions. Krystin Lui PsyD, ABPP, LP Board Certified in Clinical [place] [address] DETAILED TEST RESULTS: Word reading, often used [...] within mild range for symptoms of anxiety. LER MACHINE documented in this encounter Plan of Treatment Upcoming Encounters Date Type Department Care Team (Late st Contact Info) Description 02/23/2024 1:00 PM DRILLER MACHINE Telemedicine [facility] [address] [place] [phone] Lupe Graf PA-C [address] [place] [address] 02/24/2024 2:00 PM DRILLER MACHINE Telemedicine [facility] [address] [place] [address] Angela Tinajero PharmD [address] [place] [address] documented as of this encounter Procedures Procedure Name Priority Date/Time Associated Diagnosis Comments NEUROPSYCHOLOGICAL EXAM Routine 01/03/20 8:59 AM DRILLER MACHINE documented in this encounter Results * NEUROPSYCHOLOGICAL EXAM (01/03/2024 8:59 AM DRILLER MACHINE) Narrative EXTERNAL RESULTS - 01/03/2024 8:59 AM DRILLER MACHINE Krystin Lui, Joss, JAMAAL 01/04/2024 11:17 AM [...] a follow-up appointment with Hailey Glover, ANPR, SPORTS DOCTOR, on 01/26/2024 during which time neuropsychological test [...] an appointment was scheduled. She can call [phone] to schedule an appointment. Ms. Pace indicated [...] arranged. ____ REFERRING CLINICIAN: Hailey Glover, CARA, SPORTS DOCTOR [address] [place] [address] REASON FOR CONSULTATION: Neuropsychological evaluation to assess [...] seen in Neurology by Hailey Glover APRN, SPORTS DOCTOR. Per her note, Ms. Pace reported having [...] and bilateral upper extremities. Hailey Glover APRN, SPORTS DOCTOR, recommended lab work, an EMG to check [...] SOCIAL HISTORY: Ms. Pace was born in [place] and lived there until she was around the age of 4 or 5. She then moved to the [facility] to live with her mother. As noted above, Ms. Pace reported difficulties learning to read and indicated she was diagnosed with dyslexia. She said school was very challenging for her. Ms. Pace graduated high school. She said her mother told her she was not smart enough to go to college. Ms. Pace works at [employer] in the [employer]. She's worked at [employer] for about 10 to 11 years. She previously worked at [employer]. 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 [...] Inventory Ramos Depression Inventory - Second Edition Straughn Naming Test Brief Visuospatial Memory Test - Revised Clock Drawing Test Controlled Oral Word Association Test Rona-Goel Executive Functioning System, Selected subtests Miller Verbal Learning Test- Revised Dimitris-O Complex Figure Copy Glennie Making Test, Parts A and B Too Adult Intelligence Scale - Fourth Edition, Selected subtests Too Memory Scale - Fourth Edition, Selected subtests Wide Range Achievement Test -4, Selected subtests [place] Card Sorting Test - 64 Card Version Various freestanding and embedded measures of performance validity Thank you, Hailey Glover APRN, SPORTS DOCTOR, for involving me in the care of this patient. Please feel free to contact me if I can be of further assistance. Neurobehavioral status exam: 35 minutes. Test administration and scoring by rvda master certified rv technician: 177 minutes. Test evaluation services, including clinical integration, data interpretation, clinical decision making, treatment planning, and documentation: 165 minutes. Please note: This report was created using speech-recognition software and may contain unintended word-substitutions. Krystin Lui PsyD, ABPP, LP Board Certified in Clinical [place] [address] DETAILED TEST RESULTS: Word reading, often used [...] 2 diabetes mellitus without complication, unspecified whether longitudinal float operator insulin use (HRC)- Primary Essential hypertension (HRC) Unspecified essential hypertension Hyperlipidemia with target LDL less than 100 (HRC) Other and unspecified hyperlipidemia Complaints of memory disturbance Memory loss Depression with anxiety (HRC) Dysthymic disorder documented in this encounter Care Teams Cod Clerk Relationship Specialty Start Date End Date Lupe Graf PA-C [address] [place] [address] PCP - General Physician Foundry Technician 12/05/14 documented as of this encounter
--- OUTSIDE RECORDS SUMMARY | 2024-02-18 19:06 | XMS_ITS | Encounter Summary ---
Author Organization [facility] Address [address] [address] Care Team Providers Care Mental Tester Name Role Phone Lupe Graf PA-C Primary Care Provider [phone] Encounter Details Date Type Department Care Team (Late st Contact Info) Description 01/26/2024 7:00 AM MARKETING DEVELOPMENT REPRESENTATIVE Telemedicine Neurology at [facility] [address] [place] [address] Hailey Glover APRN, CONFERENCE PLANNING MANAGER [address] [place] [address] Tremor (Primary Dx); Anxiety (HRC); [...] Instructions * Patient Instructions* Hailey Glover APRN, CONFERENCE PLANNING MANAGER - 01/26/2024 7:00 AM MARKETING DEVELOPMENT REPRESENTATIVE Plan: -continue to focus on being physically/socially active, engaging in brain games, healthy diet. -continuing to work with primary care provider regarding mood/anxiety concerns -start propranolol 10 mg twice daily for essential tremor-please keep a diary of blood pressure andheart rate -follow up with me in 6-8 weeks in clinic regarding tremor Hailey Glover APRN, CNP 01/26/2024, 7:36 AM ETING DEVELOPMENT REPRESENTATIVE * Attachments The following attachments cannot be sent through Care Everywhere. * Mediterranean Diet: General Info (Australian) * Tremor: Essential (Australian) documented in this encounter Progress Notes * Hailey Glover APRN, CNP - 01/26/2024 7:00 AM CST [facility] NE[facility]INIC FOLLOW UP NOTE-virtual visit [...] EVERY 14 DAYS 7 Each 3 cyanocobalamin ([id number]) 1000 MCG/ML injection INJECT 1 ML (1,000 [...] Tablet 3 Vitamin D, Ergocalciferol, 1.25 MG (08987 UT) CAPS TAKE 1 CAPSULE WEEKLY 12 [...] visit. Hailey Glover CNP Neurology APC Fellow ETING DEVELOPMENT REPRESENTATIVE documented in this encounter Plan of Treatment Upcoming Encounters Date Type Department Care Team (Late st Contact Info) Description 02/23/2024 1:00 PM MARKETING DEVELOPMENT REPRESENTATIVE Telemedicine [facility] [address] [place] [phone] Lupe Graf PA-C [address] [place], [place] [phone] 02/24/2024 2:00 PM MARKETING DEVELOPMENT REPRESENTATIVE Telemedicine [facility] [address] [place] [address] Angela Tinajero, PharmD [address] [place] [address] documented as of this encounter Visit Diagnoses Diagnosis Tremor- Primary Abnormal involuntary movements Anxiety (HRC) Anxiety state, unspecified Depression, unspecified depression type documented in this encounter Care Teams Mental Tester Relationship Specialty Start Date End Date Lupe Graf PA-C [address] [place] [address] PCP - General Physician Gate Watchman 12/05/14 documented as of this encounter
--- OUTSIDE RECORDS SUMMARY | 2024-02-18 19:06 | XMS_ITS | Encounter Summary ---
Author Organization [facility] Address [address] [place] [address] Care Team Providers Care Box Toe Cutter Name Role Phone Lupe Graf PA-C Primary Care Provider [phone] Reason for Visit * Reason Comments VISION, PROBLEM Encounter Details Date Type Department Care Team (Late st Contact Info) Description 12/28/2020 Nurse Triage Careline [address] [place], [place] [phone] Lupe Graf PA-C [address] [place] [address] VISION, PROBLEM Social History Tobacco [...] AM CST She was seen yesterday at [facility]. This can be closed out. Afia Claire 12/30/2020, 9:31 AM VERY DRIVER/CUSTOMER SERVICE * Kristin Sanchez - 12/30/2020 8:50 AM CST Does this patient still need to be seen and if so when and where? VERY DRIVER/CUSTOMER SERVICE * Yuki Larsen RN - 12/28/2020 4:30 [...] period? n/a Protocols used: VISION LOSS OR [id number] VERY DRIVER/CUSTOMER SERVICE * Yuki Larsen RN - 12/28/2020 4:20 PM CST Patient/behavioral health care manager request: Appointment Work In for Vision change, appt recommended by on-call Summer Internship Dr Dahl Specific Request: Clinic appt needed [...] would like to make appt with an Summer Internship for tomorrow, but would like to know [...] to call): yes Penicillins, Aspirin, and Morphine VERY DRIVER/CUSTOMER SERVICE documented in this encounter Plan of Treatment Upcoming Encounters Date Type Department Care Team (Late st Contact Info) Description 02/23/2024 1:00 PM DELIVERY DRIVER/CUSTOMER SERVICE Telemedicine [facility] [address] [place] [phone] Lupe Graf PA-C [address] [place], [place] [phone] 02/24/2024 2:00 PM DELIVERY DRIVER/CUSTOMER SERVICE Telemedicine [facility] [address] [place], [place] [phone] Angela Tinajero PharmD [address] [place], [place] [phone] documented as of this encounter Visit Diagnoses Not on filedocumented in this encounter Care Teams Box Toe Cutter Relationship Specialty Start Date End Date Lupe Graf PA-C [address] [place] [address] PCP - General Physician Shale Planer Operator Helper 12/05/14 documented as of this encounter
--- OUTSIDE RECORDS SUMMARY | 2024-02-18 19:06 | XMS_ITS | Clinical Summary ---
Author Organization [facility] Address [address] [place] [address] Care Team Providers Care Property Investor Name Role Phone Lupe Graf PA-C Primary Care Provider +1 [phone] Source Comments You are receiving this document as you are listed as the primary care provider,follow-up provider, or the patient has been referred to you for consultation.This is in compliance with the Medicare andGrant Hospitalcaid EHR Incentive Program,which states Providers who transition their patient to another setting of careor provider of care or refers their patient to another provider of care shouldprovide summary care record for each transition of care or referral. [employer] Allergies Active Allergy Reactions Criticality Noted Date [...] daily as needed for Constipation. Active cyanocobalamin (CGXVHCOQ10) 1000 MCG/ML injection INJECT 1 ML (1,000 [...] 11/21/2023 Active Vitamin D, Ergocalciferol, 1.25 MG (12464 UT) CAPSIndications:Vi tamin D deficiency (HRC) TAKE [...] Department Care Team Description 01/26/2024 7:00 AM DROPHAMMER OPERATOR Telemedicine Neurology at [facility] [address] [place] [address] Hailey Glover APRN, RECEIVABLES SPECIALIST Tremor (Primary Dx); Anxiety (HRC); Depression, unspecified depression type 01/09/2024 Notes/Orders PN CENTRALIZED OUTREACH [address] [place] [address] Daisha Casillas PA-C Controlled type 2 diabetes mellitus without complication, without long-term current use of insulin (HRC) 01/03/2024 8:15 AM DROPHAMMER OPERATOR Office Visit [facility] Neuropsychology [address] [place] [address] Krystin Lui PsyD, LP Cognitive complaints (Primary Dx) 01/03/2024 Procedure Visit [facility] Neuropsychology [address] [place] [address] Krystin Lui PsyD, LP 12/10/[address] [phone] Lupe Graf PA-C Refill (Vitamin D, Ergocalciferol, 1.25 MG (27445 UT) CAPS [Pharmacy Med Name: VITAMIN D2 CAP 50,000 UNITS]) 11/21/2023 5:20 PM CDT Lab Visit Laboratory at [address] [address] Paresthesia (Primary Dx); Type 2 diabetes mellitus without complication, without long-term current use of insulin (HRC); Essential hypertension (HRC) 11/21/2023 4:30 PM CDT Office Visit [address] [phone] Lupe Graf PA-C Essential hypertension (HRC) (Primary [...] Flu Vac Preserv Free (3+yrs) 12/09/2015, 12/10/2010,10/17/2009,2008,04/13/2007,03/25/2006 [id number] 01/29/2009 HepB Adult (Engerix-B, 20+ y rs, 3 dose series) 04/20/2017,08/19/1998 HepB Ped/Adol (0-18 yrs) 01/07/1999 Influenza (Flucelvax), Prese rv Free QIV 12/20/2022 Influenza IIV4 (Quadrivalent ) 0.5mL (52670) 01/05/2022,02/02/2021,12/12/2019,2018,12/01/2017,11/17/2016,10/30/2013 Influenza ccIIV3 6 months+ (Flucelvax) 11/21/2023 [...] st Contact Info) Description 02/23/2024 1:00 PM DROPHAMMER OPERATOR Telemedicine [facility] [address] [place] [phone] Lupe Graf PAGreg [address] [place] [address] 02/24/2024 2:00 PM DROPHAMMER OPERATOR Telemedicine [facility] [address] [place], [place] [phone] Angela Tinajero, PharmD [address] [place], [place] [phone] Health Maintenance Due Date Last Done Comments [...] NEUROPSYCHOLOGICAL EXAM Routine 01/03/20 24 8:59 AM DROPHAMMER OPERATOR URINE CONTAINER, 24 HOUR Routine 024 5:29 [...] 12/13/2019 PAP TEST Routine 12/12/2019 1:41 PM DROPHAMMER OPERATOR Routine health maintenance from Last 3 Months or Most Recently Relevant to Health Maintenance Results * NEUROPSYCHOLOGICAL EXAM (01/03/2024 8:59 AM DROPHAMMER OPERATOR) Narrative EXTERNAL RESULTS - 01/03/2024 8:59 AM DROPHAMMER OPERATOR Krystin Lui, Joss, JAMAAL 01/04/2024 11:17 AM [...] a follow-up appointment with Hailey Glover, ANPR, RECEIVABLES SPECIALIST, on 01/26/2024 during which time neuropsychological test [...] an appointment was scheduled. She can call [phone] to schedule an appointment. Ms. Pace indicated [...] be arranged. ____ REFERRING CLINICIAN: Hailey Glover, DIRECTOR OF HOTEL OPERATIONS, RECEIVABLES SPECIALIST [address] [facility] [place] [address] REASON FOR CONSULTATION: Neuropsychological evaluation to assess [...] seen in Neurology by Hailey Glover APRN, RECEIVABLES SPECIALIST. Per her note, Ms. Pace reported having [...] and bilateral upper extremities. Hailey Glover APRN, RECEIVABLES SPECIALIST, recommended lab work, an EMG to check for neuropathy, neuroimaging of the brain and cervical spine, and a neuropsychological evaluation. During the current evaluation on 01/03/2024, Ms. Pcae reported concerns about increased difficulty with memory. [...] SOCIAL HISTORY: Ms. Pace was born in [place] and lived there until she was around the age of 4 or 5. She then moved to the [facility] to live with her mother. As noted above, Ms. Pace reported difficulties learning to read and indicated she was diagnosed with dyslexia. She said school was very challenging for her. Ms. Pace graduated high school. She said her mother told her she was not smart enough to go to college. Ms. Pace works at [employer] in the [employer]. She's worked at [employer] for about 10 to 11 years. She previously worked at [employer]. 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 [...] Inventory Ramos Depression Inventory - Second Edition [place] Naming Test Brief Visuospatial Memory Test - Revised Clock Drawing Test Controlled Oral Word Association Test Rona-Goel Executive Functioning System, Selected subtests Miller Verbal Learning Test- Revised Dimitris-O Complex Figure Copy Sieper Making Test, Parts A and B Too Adult Intelligence Scale - Fourth Edition, Selected subtests Too Memory Scale - Fourth Edition, Selected subtests Wide Range Achievement Test -4, Selected subtests [place] Card Sorting Test - 64 Card Version Various freestanding and embedded measures of performance validity Thank you, Hailey Glover APRN, RECEIVABLES SPECIALIST, for involving me in the care of this patient. Please feel free to contact me if I can be of further assistance. Neurobehavioral status exam: 35 minutes. Test administration and scoring by earth science laboratory technician: 177 minutes. Test evaluation services, including clinical integration, data interpretation, clinical decision making, treatment planning, and documentation: 165 minutes. Please note: This report was created using speech-recognition software and may contain unintended word-substitutions. Krystin Lui PsyD, ABPP, LP Board Certified [place] [address] DETAILED TEST RESULTS: Word reading, often used [...] HP DUMMY COD ES Performing Organization Address City/[facility]/ZIP Co de Phone Number EXTERNAL RESULTS * Urine Container, 24 Hour (11/21/2023 5:29 PM CDT) Container Given Done 7:00 PM CDT [facility] Other Specimen Type 11/21/2023 5:29 PM CDT 11/21/2023 5:29 PM CDT Hailey Glover APRN, CNP LAB_1 Performing Organization Address City/[facility]/ZIP Co de Phone Number [facility] [address] [place] [address], [facility] * (ABNORMAL) BMP (11/21/2023 5:25 PM CDT) Sodium 140 136 - 145 mmol/L 11/21/2023 9:40 PM CDT [facility] Potassium 4.0 3.5 - 5.1 mmol/L 11/21/2023 9:40 PM T [facility] Chloride 107 98 - 109 mmol/L 11/21/2023 9:40 PM T [facility] CO2 24 20 - 29 mmol/L 11/21/2023 9:40 PM T [facility] Anion Gap 9 6 - 16 mmol/L 11/21/2023 9:40 PM T [facility] Calcium 9.9 8.4 - 10.4 mg/dL 11/21/2023 9:40 PM T [facility] BUN 11 7 - 26 mg/dL 11/21/2023 9:40 PM T [facility] Creatinine 0.65 0.55 - 1.02 mg/dL 11/21/2023 9:40 PM T [facility] Glucose 115(H) 70 - 100 mg/dL 11/21/2023 9:40 PM T [facility] Comment:The given reference range is for the fasting state. Non-fasting reference range for glucose is 70 - 180 mg/dL. GFR, Estimated >60 >60 mL/min/1. 73m2 11/21/2023 9:40 PM T [facility] Hours Fasting 0.0 8 - 12 Hours 11/21/2023 9:40 PM T [facility] Blood Venipuncture / Unknown 11/21/2023 5:25 PM CDT 11/21/2023 5:25 PM CDT Lupe Graf PA-C LAB_1 [facility] [address] * Albumin/Creatinine Ratio,Random Urine (11/21/2023 5:25 PM CDT) Albumin/Creati nine Ratio, Urine, Random 10 <30 mg/g 11/21/2023 9:55 PM CDT [facility] Albumin, Urine, Random 12.5 mg/L 11/21/2023 9:55 PM CDT [facility] Creatinine, Urine, Random 121 >20 mg/dL mg/dL 11/21/2023 9:55 PM CDT [facility] Urine Non-blood Collection / Unknown 11/21/2023 5:25 PM CDT 11/21/2023 5:31 PM CDT Lupe Graf PA-C LAB_1 Performing Organization Address [facility] de Phone Number [facility] [address] * (ABNORMAL) Hgb A1C (11/21/2023 5:25 PM CDT) Hemoglobin A1C 6.7(H) <=5.6 % 11/21/2023 9:45 PM CDT [facility] Estimated Average Glucose (Calc) 146 < 117 mg/dL 11/21/2023 9:45 PM T [facility] Comment:Estimated average gl ucose (eAG) converts A1c into glucose units (mg/dL) and estimates average glucose over the past approximately 3 months. The eAG reference interval (<117 mg/dL) corresponds to an A1c of <5.7%. Blood Venipuncture / Unknown 11/21/2023 5:25 PM CDT 11/21/2023 5:25 PM CDT Narrative [facility] - 11/21/2023 9:45 PM CDT For patients not previously diagnosed with diabetes: 5.7-6.4%: Increased risk for diabetes 6.5% and greater: Diagnostic for diabetes For patients diagnosed with diabetes: <8.0%: Goal of therapy for ages 18-75 Clinicians may recommend a higher or lower goal for specific individuals. Lupe Graf PA-C LAB_1 Performing Organization Address [facility] Co de Phone Number [facility] [address] * Lipid Panel and Direct LDL(If Needed) (05/30/2023 7:17 AM CDT) Cholesterol 170 0 - 199 mg/dL 05/30/2023 12:28 PM CDT [facility] Triglyceride 84 <=149 mg/dL 05/30/2023 12:28 PM CDT [facility] HDL Cholesterol 66 >=40 mg/dL 05/30/2023 12:28 PM CDT [facility] LDL, Calculated 87 <130 mg/dL 05/30/2023 12:28 PM CDT [facility] Non HDL Chol, Calculated 104 <=159 mg/dL 05/30/2023 12:28 PM CDT [facility] Cholesterol/HDL Ratio 2.6 <=5.0 05/30/2023 12:28 PM CDT [facility] Hours Fasting 12.0 8 - 12 Hours 05/30/2023 12:28 PM CDT [facility] Blood Venipuncture / Unknown 05/30/2023 7:17 AM CDT 05/30/2023 7:17 AM CDT Daisha Casillas PA-C LAB_1 [facility] [address] LAB [address] [place] [address] * MM Mammogram Screening Bilat W 3D [...] DUMMY/OTHER/AR * PAP Test (12/12/2019 1:41 PM DROPHAMMER OPERATOR) Case Report Pap Case: [id number] Authorizing Provider: Pat Jiang MD Collected: 12/12/2019 1341 Ordering Location: [facility] Received: 12/12/2019 1524 and Gynecology First Screen: Breanna Benoit CT (ASCP) Specimen: Pap Test, Routine, Cervix/Endocervix 12/18/2019 8:01 AM [facility] Pap Specimen Adequacy Satisfactory for evaluation, endocervical/gonzales sformation zone component present. 12/18/2019 8:01 AM [facility] Pap Interpretation Negative for intraepithelial lesion or malignancy (NILM). 12/18/2019 8:01 AM [facility] Pap Disclaimer The Pap test is a screening test designed to aid in the detection of cervical cancer and its precursor lesions. It is not a diagnostic procedure and should not be used as the sole means of detecting cervical cancer. Both false-positive and false-negative results may occur. 12/18/2019 8:01 AM [facility] Gross Description The specimen is received in SurePath fixative and properly labeled. 1 Pap-stained SurePath slide is prepared. 12/18/2019 8:01 AM [facility] Embedded Images 0 8:01 AM [facility] Other Specimen Type ENTIRE ENDOCERVIX / Unknown 12/12/2019 1:41 PM DROPHAMMER OPERATOR 12/12/2019 3:24 PM DROPHAMMER OPERATOR Comment:LMP: No LMP recorded . Patient is postmenopausal. Pat Jiang [place] [address], [facility] [phone] from Last 3 Months or Most Recently Relevant to Health Maintenance Advance Directives * Full Code (Latest Code Status on File) Date Activated Date Inactivated Comments 06/08/2020 3:27 PM 06/10/2020 2:25 PM Care Teams Property Investor Relationship Specialty Start Date End Date Lupe Graf PA-C [address] [place] [address] PCP - General Physician Reservations Clerk 12/05/14
--- OUTSIDE RECORDS SUMMARY | 2024-02-18 19:06 | XMS_ITS | Encounter Summary ---
Author Organization [employer] Address [address] [address] Care Team Providers Care Professor Of Mechanical Engineering Name Role Phone Lupe Graf PA-C Primary Care Provider [phone] [phone] Encounter Details Date Type Department Care Team [...] Upcoming Encounters Date Type Department Care Team ([facility] [address] Contact Info) Description 02/23/2024 1:00 PM [facility] Telemedicine [facility] [address] [place] [phone] Lupe Graf PA-C [address] [place] [address] 02/24/2024 2:00 PM [facility] Telemedicine [facility] [address] [place], [place] [phone] Angela Tinajero PharmD [address] [place] [address] documented as of this encounter Visit Diagnoses Not on filedocumented in this encounter Care Teams Professor Of Mechanical Engineering Relationship Specialty Start Date End Date Lupe Graf PA-C [address] [place] [address] PCP - General Physician Prevention Rn 12/05/14 documented as of this encounter
--- OUTSIDE RECORDS SUMMARY | 2024-02-18 19:06 | XMS_ITS | Encounter Summary ---
Author Organization [employer] Address [address] [address] Care Team Providers Care Top Lifter Name Role Phone Lupe Graf PA-C Primary Care Provider +1 [phone] Encounter Details Date Type Department Care Team [...] (Late Contact Info) Description 02/23/2024 1:[address] HOGGER OPERATOR Telemedicine [facility] [address] [place] [phone] Lupe Graf PA-C [address] [place], [place] [phone] 02/24/2024 2:[address] HOGGER OPERATOR Telemedicine [facility] [address] [place], [place] [phone] Angela Tinajero PharmD [address] [place], [place] [phone] documented as of this encounter Visit Diagnoses Not on filedocumented in this encounter Care Teams Top Lifter Relationship Specialty Start Date End Date Lupe Graf PA-C [address] [place] [address] PCP - General Physician Brush Clearer Surveying 12/05/14 documented as of this encounter
--- OUTSIDE RECORDS SUMMARY | 2024-02-18 19:06 | XMS_ITS | Encounter Summary ---
Author Organization [employer] Address [address] [address] Care Team Providers Care Director Medical Affairs Name Role Phone Lupe Graf PA-C Primary Care Provider +1 [phone] Encounter Details Date Type Department Care Team (Late Contact Info) Description 07/27/2018 Correspondence [facility] [address] [place] [address] Bill Lund PA-C [address] [place] [address] FMLA Social History Tobacco Use [...] st Contact Info) Description 02/23/2024 1:00 PM TUTORING MANAGER Telemedicine [facility] [address] [place] [address] Lupe Graf PA-C [address] [place], [place] [phone] 02/24/2024 2:00 PM TUTORING MANAGER Telemedicine [facility] [address] [place] [address] Angela Tinajero, PharmD [address] [place], [place] [phone] documented as of this encounter Visit Diagnoses Not on filedocumented in this encounter Care Teams Director Medical Affairs Relationship Specialty Start Date End Date Lupe Graf PA-C [address] [place] [address] PCP - General Physician Golf Course Mechanic 12/05/14 documented as of this encounter
--- OUTSIDE RECORDS SUMMARY | 2024-02-18 19:06 | XMS_ITS | Encounter Summary ---
Author Organization [employer] Address [address], [place] [address] Care Team Providers Care Lockstitch Back Maker Name Role Phone Lupe Graf PA-C Primary Care Provider [phone] [phone] Encounter Details Date Type Department Care Team (Late Contact Info) Description 01/09/2024 Notes/Orders PN CENTRALIZED OUTREACH [address] [place] [address] Daisha Casillas PA-C [address] [place], [place] [phone] Controlled type 2 diabetes mellitus without complication, [...] Upcoming Encounters Date Type Department Care Team ([facility] Contact Info) Description 02/23/2024 1:00 PM VOICE PROFESSOR Telemedicine [address] [phone] Lupe Graf PA-C [address] [place], [place] [phone] 02/24/2024 2:00 PM [facility] [address] [place], [place] [phone] Angela Tinajero PharmD [address] [place], [place] [phone] Scheduled Orders Name Type Priority Associated Diagnoses Orde r Schedule Hgb A1C Lab Routine Controlled type 2 diabetes mellitus without complication, without long-term current use of insulin (HRC) Expected: 01/09/2024, Expires: 04/08/2024 documented as of this encounter Visit Diagnoses Diagnosis Controlled type 2 diabetes mellitus without complication, without long-term current use of insulin (HRC) documented in this encounter Care Teams Lockstitch Back Maker Relationship Specialty Start Date End Date Lupe Graf PA-C [address] [place] [address] PCP - General Physician Spring Production Supervisor 12/05/14 documented as of this encounter
--- OUTSIDE RECORDS SUMMARY | 2024-02-18 19:06 | XMS_ITS | Clinical Summary ---
Author Organization [facility] Address [address] [place] [address] Care Team Providers Care Agronomist Name Role Phone [facility], [facility] Primary Care Provider Allergies Active Allergy Reactions [...] on file Legal Sex Female 3:12 AM CLIENT REPRESENTATIVE Gender Identity Not on file Sexual Orientation [...] 133 - 144 mmol/L 06/06/2020 1:00 PM [facility] Potassium 4.5 3.4 - 5.3 mmol/L 06/06/2020 1:00 PM [facility] Chloride 100 94 - 109 mmol/L 06/06/2020 1:00 PM [facility] Carbon Dioxide 12(L) 20 - 32 mmol/L 06/06/2020 1:09 PM [facility] Anion Gap 18(H) 3 - 14 mmol/L 06/06/2020 1:09 PM [facility] Glucose 389(H) 70 - 99 mg/dL 06/06/2020 1:09 PM [facility] Urea Nitrogen 21 7 - 30 mg/dL 06/06/2020 1:09 PM [facility] Creatinine 0.69 0.52 - 1.04 mg/dL 06/06/2020 1:09 PM [facility] GFR Estimate >90 >60 mL/min/{1. 73_m2} 06/06/2020 1:09 PM [facility] Comment: Non GFR Calc Starting 01/24/2018, serum creatinine based estimated GFR (eGFR) will be calculated using the Chronic Kidney Disease Epidemiology Collaboration (CKD-EPI) equation. GFR Estimate If Black >90 >60 mL/min/{1. 73_m2} 06/06/2020 1:09 PM [facility] Comment: GFR Calc Starting 01/24/2018, serum creatinine based estimated GFR (eGFR) will be calculated using the Chronic Kidney Disease Epidemiology Collaboration (CKD-EPI) equation. Calcium 9.3 8.5 - 10.1 mg/dL 06/06/2020 1:09 PM [facility] Blood 06/06/2020 12:2 6 PM CDT 06/06/2020 12:47 PM CDT Rasheeda Najera MD LAB - BLOOD ORDERABLES Fi nal Result [facility] [address] [place] [address], [facility] [phone] from Last 3 Months or Most Recently Relevant to Health Maintenance Insurance [facility] Care Teams Agronomist Relationship Specialty Start Date End Date Clinic, [facility] [address] [place] [address] PCP - General 04/08/17
--- OUTSIDE RECORDS SUMMARY | 2024-02-18 19:06 | XMS_ITS | Encounter Summary ---
Author Organization [email or web address] Address [address], [place] [address] Care Team Providers Care Leasing Consultant Name Role Phone Lupe Graf PA-C Primary Care Provider [phone] [phone] Encounter Details Date Type Department Care Team [...] (Late Contact Info) Description 02/23/2024 1:00 PM MOLD CLAMPER Telemedicine [facility] [address] [place] [phone] Lupe Graf PA-C [id number] [place] [phone] 02/24/2024 2:00 PM MOLD CLAMPER Telemedicine [facility] [address] [place], [place] [phone] Angela Tinajero, PharmD [address] [place], [place] [phone] documented as of this encounter Visit Diagnoses Not on filedocumented in this encounter Care Teams Leasing Consultant Relationship Specialty Start Date End Date Luep Graf PA-C [address] [place] [address] PCP - General Physician Needle Loom Weaver 12/05/14 documented as of this encounter
--- OUTSIDE RECORDS SUMMARY | 2024-02-18 19:06 | XMS_ITS | Referral Summary ---
Author Organization [facility] [employer] Address [address] [place] [address] Care Team Providers Care Housing Liaison Name Role Phone [facility], [facility] Primary Care Provider Allergies Active Allergy Reactions [...] on file Legal Sex Female 3:12 AM REGISTERED OCCUPATIONAL THERAPIST Gender Identity Not on file Sexual Orientation [...] - 10.1 mg/dL 06/06/2020 1:09 PM CDT [facility] Blood 06/06/2020 12:2 6 PM CDT 06/06/2020 12:47 PM CDT us Rasheeda Najera MD LAB - BLOOD ORDERABLES Fi nal Result [facility] [address] [place], [place] [address] [phone] from Last 3 Months or Most Recently Relevant to Health Maintenance Insurance [facility] Care Teams Housing Liaison Relationship Specialty Start Date End Date Clinic, [facility] [address] [address] [place] [address] PCP - General 04/08/17
--- OUTSIDE RECORDS SUMMARY | 2024-02-18 19:06 | XMS_ITS | Encounter Summary ---
Author Organization [employer] Address [address], [place] [address] Care Team Providers Care Spiritual Care Coordinator Name Role Phone Lupe Graf PA-C Primary Care Provider +1 [phone] Encounter Details Date Type Department Care Team [...] (Late Contact Info) Description 02/23/2024 1:00 PM [facility] Telemedicine [facility] [address] [place] [phone] Lupe Graf PA-C [address] [place] [address] 02/24/2024 2:00 PM [facility] Telemedicine [facility] [address] [place], [place] [phone] Angela Tinajero PharmD [address] [place] [address] documented as of this encounter Visit Diagnoses Not on filedocumented in this encounter Care Teams Spiritual Care Coordinator Relationship Specialty Start Date End Date Lupe Graf PA-C [address] [place] [address] PCP - General Physician Snowboard Designer 12/05/14 documented as of this encounter
--- OUTSIDE RECORDS SUMMARY | 2024-02-18 19:06 | XMS_ITS | Encounter Summary ---
Author Organization [employer] Address [address] [address] Care Team Providers Care General Cleaner Name Role Phone Lupe Graf PA-C Primary Care Provider [phone] Encounter Details Date Type Department Care Team [...] (Late Contact Info) Description 02/23/2024 1:00 PM AUTO REBUILDER Telemedicine [facility] [address] [place] [phone] Lupe Graf PA-C [address] [place], [place] [phone] 02/24/2024 2:00 PM AUTO REBUILDER Telemedicine [facility] [address] [place], [place] [phone] Angela Tinajero PharmD [address] [place], [place] [phone] documented as of this encounter Visit Diagnoses Not on filedocumented in this encounter Care Teams General Cleaner Relationship Specialty Start Date End Date Lupe Graf PA-C [address] [place] [address] PCP - General Physician Sumac Tanner 12/05/14 documented as of this encounter
--- OUTSIDE RECORDS SUMMARY | 2024-02-18 19:07 | XMS_ITS | Encounter Summary ---
Author Organization [employer] Address [address], [place] [address] Care Team Providers Care Steam Fitter Helper Name Role Phone Lupe Graf PA-C Primary Care Provider [phone] Encounter Details Date Type Department Care Team (Late Contact Info) Description 01/08/2015 Correspondence External to External, [place] [address] URGENT CARE AFTER VISIT SUMMARY Social History [...] (Late Contact Info) Description 02/23/2024 1:00 PM MILIEU COUNSELOR Telemedicine [facility] [address] [place] [phone] Lupe Graf PA-C [id number] [place] [phone] 02/24/2024 2:00 PM MILIEU COUNSELOR Telemedicine [facility] [address] [place], [place] [phone] Angela Tinajero PharmD [address] [place], [place] [phone] documented as of this encounter Visit Diagnoses Not on filedocumented in this encounter Care Teams Steam Fitter Helper Relationship Specialty Start Date End Date Lupe Graf PA-C [address] [place] [address] PCP - General Physician Mule Packer 12/05/14 documented as of this encounter
--- OUTSIDE RECORDS SUMMARY | 2024-02-18 19:07 | XMS_ITS | Encounter Summary ---
Author Organization [employer] Address [address] [address] Care Team Providers Care Senior Field Service Engineer Name Role Phone Lupe Graf PA-C Primary Care Provider [phone] Encounter Details Date Type Department Care Team (Late Contact Info) Description 04/25/2017 Correspondence [facility] Radiology [address] [place] [address] Radiology, Provider MRI SAFETY SHEET AND COMPATIBILITY [...] (Late Contact Info) Description 02/23/2024 1:00 PM DRYING FRAME OPERATOR Telemedicine [facility] [address] [place] [phone] Lupe Graf PA-C [address] [place] [address] 02/24/2024 2:00 PM DRYING FRAME OPERATOR Telemedicine [facility] [address] [place], [place] [phone] Angela Tinajero PharmD [address] [place] [address] documented as of this encounter Visit Diagnoses Not on filedocumented in this encounter Care Teams Senior Field Service Engineer Relationship Specialty Start Date End Date Lupe Graf PA-C [address] [place] [address] PCP - General Physician Medical Device 12/05/14 documented as of this encounter
--- OUTSIDE RECORDS SUMMARY | 2024-02-18 19:07 | XMS_ITS | Encounter Summary ---
Author Organization [employer] Address [address] [address] Care Team Providers Care Kennel Manager Dog Track Name Role Phone Lupe Graf PA-C Primary Care Provider [phone] [phone] Encounter Details Date Type Department Care Team (Late st Contact Info) Description 08/13/2016 Refill Order [facility] [address] [place], [place] [phone] Lupe Graf PA-C [address] [place] [address] Social History Tobacco Use Types [...] st Contact Info) Description 02/23/2024 1:00 PM DIRECTOR OF BILLING Telemedicine [facility] [address] [place] [phone] Lupe Graf PA-C [address] [place] [address] 02/24/2024 2:00 PM [facility] [address] [place] [address] Angela Tinajero, PharmD [address] [place] [address] documented as of this encounter Visit Diagnoses Diagnosis Encounter for long-term (current) use of medications- Primary Encounter for long-term (current) use of other medications documented in this encounter Care Teams Kennel Manager Dog Track Relationship Specialty Start Date End Date Lupe Graf PA-C [address] [place] [address] PCP - General Physician Food Or Baggage Handling Rampman 12/05/14 documented as of this encounter
--- OUTSIDE RECORDS SUMMARY | 2024-02-18 19:07 | XMS_ITS | Encounter Summary ---
Author Organization [employer] Address [address], [place] [address] Care Team Providers Care Ride Operator Name Role Phone uLpe Graf PA-C Primary Care Provider [phone]- [phone] Encounter Details Date Type Department Care Team (Late Contact Info) Description 04/29/2017 Correspondence [facility] [address] [place], [place] [phone] Lupe Graf PA-C [address] [place], [place] [phone] FMLA Social History Tobacco Use Types Packs/Day [...] st Contact Info) Description 02/23/2024 1:00 PM HOTEL SUPPLIES SALESPERSON Telemedicine [facility] [address] [place] [phone] Lupe Graf PA-C [address] [place], [place] [phone] 02/24/2024 2:00 PM HOTEL SUPPLIES SALESPERSON Telemedicine [facility] [address] [place], [place] [phone] Angela Tinajero, PharmD [address] [place] [address] documented as of this encounter Visit Diagnoses Not on filedocumented in this encounter Care Teams Ride Operator Relationship Specialty Start Date End Date Lupe Graf PA-C [address] [place] [address] PCP - General Physician Handbag Frames Inspector 12/05/14 documented as of this encounter
--- OUTSIDE RECORDS SUMMARY | 2024-02-18 19:07 | XMS_ITS | Encounter Summary ---
Author Organization [employer] Address [address] [address] Care Team Providers Care Fisheries Officer Name Role Phone Lupe Graf PA-C Primary Care Provider [phone]- [phone] Encounter Details Date Type Department Care Team (Late st Contact Info) Description 05/22/2016 Refill Order [facility] [address] [place], [place] [phone] Lupe Graf PA-C [address] [place] [address] Social History Tobacco Use Types [...] st Contact Info) Description 02/23/2024 1:00 PM RACE ENGINE BUILDER Telemedicine [facility] [address] [place] [phone] Lupe Graf PA-C [address] [place] [address] 02/24/2024 2:00 PM [facility] [address] [place], [place] [phone] Angela Tinajero, PharmD [address] [place] [address] documented as of this encounter Results * [...] PM CDT 12/02/2016 4:15 PM CDT Narrative [facility] - 12/02/2016 7:01 PM CDT Performed at [facility], [address] [place] [address] Lupe Graf PA-C LAB_1 [facility] [phone] documented in this encounter Visit Diagnoses Diagnosis Encounter for long-term (current) use of medications- Primary Encounter for long-term (current) use of other medications Encounter for long-term (current) use of medications Encounter for long-term (current) use of other medications Controlled type 2 diabetes mellitus without complication, with long-term current use of insulin (HRC) documented in this encounter Care Teams Fisheries Officer Relationship Specialty Start Date End Date Lupe Graf PA-C [address] [place] [address] PCP - General Physician Cant Gang Sawyer 12/05/14 documented as of this encounter
[2024-02-18] MEDS: ONDANSETRON 2 MG/ML inj 4 MG IVP (19:08)
[2024-02-18 19:09] LABS: Basophils Absolute Auto 0.01 K/uL (0.00-0.30); Basophils Percent Auto 0.1 % (0.0-3.0); Eosinophils Absolute Auto 0.02 K/uL (0.00-0.50); Eosinophils Percent Auto 0.2 % (0.0-7.0); Hematocrit 38.3 % (33.0-51.0); Hemoglobin* 12.9 gm/dL (12.0-16.0); Immature Granulocytes Abs Auto 0.04 K/uL (0.00-0.30); Immature Granulocytes Pct Auto 0.4 %; Lymphocytes Percent Auto 19.1 % (20-44); Mean Corpuscular HGB Conc 34 gm/dL (32-36); Mean Corpuscular Hemoglobin 28 pg (26-34); Mean Corpuscular Volume 84 fL (80-100); Monocytes Percent Auto 5.9 % (0.0-11.0); Neutrophils Percent Auto 74.3 % (42.0-72.0); Platelet Count* 208 K/uL (140-440); RDW Coefficient of Variation % 11.9 % (11.5-15.5); Red Blood Count 4.55 m/uL (4.00-5.20); White Blood Count* 9.47 K/uL (4.50-11.00)
[2024-02-18] MEDS: HYDROmorphone 0.5 mg/0.5 ml inj 1 MG IVP (19:09)
[2024-02-18 19:16] LABS: Slide Review Reflex No
[2024-02-18 19:17] LABS: Lactate* 0.9 mmol/L (0.5-1.9)
[2024-02-18 19:24] LABS: Creatinine, Point-of-Care* 0.6 mg/dl (0.6-1.3)
[2024-02-18 19:34] LABS: Chloride* 104 mmol/L (96-114); Potassium* 3.6 mmol/L (3.6-5.1); Sodium* 136 mmol/L (135-149)
[2024-02-18 19:36] LABS: Anion Gap 7 mEq/L (7-15); Aspartate Amino Transferase* 36 U/L (12-35); Bilirubin Total* 0.6 mg/dL (0.1-1.5); Carbon Dioxide* 25 mmol/L (20-32); Creatinine* 0.5 mg/dL (0.5-1.5); Est. Creatinine Clearance* 61.74; Estimated Glomerular Filt Rate 107 ml/min
[2024-02-18 19:37] LABS: Alanine Aminotransferase* 60 U/L (4-35); Alkaline Phosphatase* 29 U/L (40-150); Blood Urea Nitrogen* 11 mg/dL (7-30); Calcium* 9.2 mg/dL (8.4-10.6); Glucose* 144 mg/dL (60-115); Total Protein* 6.3 g/dL (6.0-8.3)
[2024-02-18 19:39] LABS: INR 0.98 (0.91-1.10); Prothrombin Time 13.6 Seconds
[2024-02-18 19:48] VITALS: PULSE 92; O2SAT 97
[2024-02-18 20:00] VITALS: BP 197/82; PULSE 90; PULSE 94; RESP 16; O2SAT 93; O2SAT 99
[2024-02-18 20:15] VITALS: PULSE 89; O2SAT 96
[2024-02-18] MEDS: OxyCODONE/APAP 5-325 TABLET 1 TAB PO (20:44)
== END 2024-02-18 21:29 | disposition home or self-care (01) ==
PROVIDERS: Emergency Provider Emergency Medicine; PCP Physician Assistant Medical
DX: S32.010A Wedge compression fracture of first lumbar vertebra, initial encounter for closed fracture (principal); W19.XXXA Unspecified fall, initial encounter
CPT/HCPCS: 36415; 70450; 71260; 72125; 72128; 72131; 74177; 80053; 82565; 83605; 85025; 85610; 96374; 96375; 99284; A9270; J1171; J2405; Q9967